=== PATIENT | male | born 1955 | race Caucasian/White ===

== ENCOUNTER 2017-09-19 12:38 | Emergency (ER) | payer BC, OTHER ==
[2017-09-19 12:47] VITALS: RESP 18
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
[2017-09-19] MEDS ORDERED: MORPHINE SULFATE 4 MG/ML SYRINGE IVP STA (13:30)
[2017-09-19 13:49] LABS: Basophils % (A) 0 %; Eosinophils # (A) 0.1 k/uL (0-0.7); Eosinophils % (A) 1 %; HCT 41.8 % (39.0-53.0); HGB 13.5 gm/dL (13.0-17.5); Lymphocytes # (A) 1.1 k/uL (1.0-4.8); Lymphocytes % (A) 13 %; MCHC 32.4 g/dL (31.0-37.0); MCV 86.5 fL (80.0-100.0); Monocytes # (A) 0.4 k/uL (0-1.0); Monocytes % (A) 5 %; Neutrophils # (A) 6.4 k/uL (1.3-7.7); Neutrophils % (A) 80 %; Platelet Count 148 k/uL (150-450); RBC 4.83 m/uL (4.30-5.90); RDW 14.3 % (11.5-15.5)
[2017-09-19 13:57] LABS: Chloride 104 mmol/L (98-107)
[2017-09-19 14:02] LABS: Partial Thromboplastin Time 25.5 sec (22.0-30.0); Prothrombin Time 10.2 sec (9.0-12.0)
[2017-09-19 14:03] LABS: Creatine Kinase 121 U/L (55-170)
[2017-09-19 14:16] LABS: Creatine Kinase MB 1.4 ng/mL (0.0-2.4); Troponin I <0.012 ng/mL (0.000-0.034)
[2017-09-19 14:42] LABS: ALT 36 U/L (21-72); AST 32 U/L (17-59); Albumin 4.2 g/dL (3.5-5.0); Alcohol <10 mg/dL; Alkaline Phosphatase 68 U/L (38-126); Anion Gap 10 mmol/L; Blood Urea Nitrogen 17 mg/dL (9-20); Calcium 8.9 mg/dL (8.4-10.2); Carbon Dioxide 26 mmol/L (22-30); Glucose 109 mg/dL (74-99); Potassium 3.8 mmol/L (3.5-5.1); Sodium 140 mmol/L (137-145); Total Bilirubin 0.4 mg/dL (0.2-1.3); Total Protein 7.2 g/dL (6.3-8.2)
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
[2017-09-19 16:01] VITALS: BP 145/98; PULSE 87; TEMP 97.4
== END 2017-09-19 16:13 | disposition home or self-care (01) ==
LOC: EC 12:38
DX: M54.9 Dorsalgia, unspecified (principal); R07.9 Chest pain, unspecified; G47.419 Narcolepsy without cataplexy; I10 Essential (primary) hypertension; Z98.890 Other specified postprocedural states; Z96.642 Presence of left artificial hip joint; Z79.899 Other long term (current) drug therapy; V89.2XXA Person injured in unspecified motor-vehicle accident, traffic, initial encounter; Y92.89 Other specified places as the place of occurrence of the external cause
CPT/HCPCS: 36415; 80053; 82550; 82553; 84484; 85025; 85610; 85730; 80320; 71260; 74177; 99285; 96374; J2270; Q9967

== ENCOUNTER 2018-12-31 21:11 | Observation (INO) | payer BC, OTHER ==
[2018-12-31] MEDS ORDERED: SODIUM CHLORIDE 0.9% 1,000 ML IV STA (21:42)
--- NOTE | 2018-12-31 21:49 | ED ---
General Adult HPI - General Chief complaint: Syncope Stated complaint: Near syncope Time Seen by Provider: 12/31/18 21:30 Source: patient, family, RN notes reviewed, old records reviewed Mode of arrival: EMS Limitations: no limitations - History of Present Illness Initial comments: 63-year-old male presents with syncopal episode. Patient does have previous history of syncopal episode approximately 2-3 years ago. He has history of hypertension. He had not taken his antihypertensive medications tonight. He was sitting at the table watching television became lightheaded and diaphoretic. His take his blood pressure to 70 systolic. He does state he had 2 glasses of wine which is not abnormal for this patient. He had eaten and believes he had drank adequate amount water. No vomiting or diarrhea. No chest pain. He did have palpitations associated with this episode. No abdominal pain. Patient is feeling better at the time my evaluation. Denies melena or bright red rectal bleeding. - Related Data Home Medications Medication Instructions Recorded Confirmed Losartan/Hydrochlorothiazide 1 each PO DAILY 08/21/14 08/21/14 [Losartan-Hctz 100-25 mg Tab] Methylphenidate HCl [Ritalin] 20 mg PO 08/21/14 08/21/14 Previous Rx's Medication Instructions Recorded Hydrocodone/Acetaminophen [[place] 1 each PO Q6HR PRN #20 tab 08/21/14 5-325] Orphenadrine [Norflex] 100 mg PO Q12H #10 tablet.er 08/21/14 Allergies Allergy/AdvReac Type Severity Reaction Status Date / Time No Known Allergies Allergy Verified 09/19/17 12:47 Review of Systems ROS Statement: Those systems with pertinent positive or pertinent negative responses have been documented in the HPI. ROS Other: All systems not noted in ROS Statement are negative. Past Medical History Past Medical History: Hypertension Additional Past Medical History / Comment(s): narcolepsy History of Any Multi-Drug Resistant Organisms: None Reported Past Surgical History: Joint Replacement, Orthopedic Surgery Additional Past Surgical History / Comment(s): back sx, left hip replacement Past Psychological History: No Psychological Hx Reported Smoking Status: Never smoker Past Alcohol Use History: Rare Past Drug Use History: None Reported General Exam Limitations: no limitations General appearance: alert, in no apparent distress Head exam: Present: atraumatic, normocephalic Eye exam: Present: normal appearance, PERRL ENT exam: Present: normal exam Neck exam: Present: normal inspection. Absent: tenderness, meningismus Respiratory exam: Present: normal lung sounds bilaterally. Absent: respiratory distress, wheezes Cardiovascular Exam: Present: regular rate, normal rhythm. Absent: irregular rhythm, JVD GI/Abdominal exam: Present: soft, distended. Absent: tenderness, guarding, rebound Extremities exam: Present: normal inspection, normal capillary refill. Absent: pedal edema, calf tenderness Neurological exam: Present: alert, oriented X3, CN II-XII intact. Absent: motor sensory deficit Psychiatric exam: Present: normal affect, normal mood Skin exam: Present: warm, dry, intact. Absent: cyanosis, diaphoretic Course Vital Signs 12/31/18 12/31/18 21:37 22:38 Temperature 98.0 F Pulse Rate 82 Pulse Rate [ 62 Diagnostic Assistant ] Respiratory 20 Rate Blood Pressure 135/76 O2 Sat by Pulse 99 Oximetry EKG Findings - EKG Comments: EKG Findings:: EKG: Normal sinus rhythm, rate of 67, IL interval 180, QRS duration 114, QTC 429, no ST segment elevation or depression. Medical Decision Making - Medical Decision Making 63-year-old male presenting with an episode of hypotension and syncope. Workup in the emergency department reveals EKG was normal sinus rhythm, no ischemic changes. Chest x-ray negative for acute cardiopulmonary disease. Patient has normal CBC, normal CMP, negative troponin. Urinalysis is pending. Patient will be kept in observation given his episode of very low blood pressure. He will be kept on telemetry, echo will be obtained. - Lab Data Result diagrams: 12/31/18 21:24 12/31/18 21:24 Lab Results 12/31/18 12/31/18 12/31/18 Range/Units 21:24 21:24 21:24 WBC 8.2 (3.8-10.6) k/uL RBC 4.71 (4.30-5.90) m/uL Hgb 13.8 (13.0-17.5) gm/dL Hct 41.9 (39.0-53.0) % MCV 89.0 (80.0-100.0) fL MCH 29.3 (25.0-35.0) pg MCHC 33.0 (31.0-37.0) g/dL RDW 13.8 (11.5-15.5) % Plt Count 161 (150-450) k/uL Neutrophils % 73 % Lymphocytes % 19 % Monocytes % 5 % Eosinophils % 1 % Basophils % 0 % Neutrophils # 6.0 (1.3-7.7) k/uL Lymphocytes # 1.6 (1.0-4.8) k/uL Monocytes # 0.4 (0-1.0) k/uL Eosinophils # 0.1 (0-0.7) k/uL Basophils # 0.0 (0-0.2) k/uL PT 9.8 (9.0-12.0) sec INR 0.9 (<1.2) APTT 23.7 (22.0-30.0) sec Sodium 140 (137-145) mmol/L Potassium 3.7 (3.5-5.1) mmol/L Chloride 105 (98-107) mmol/L Carbon Dioxide 27 (22-30) mmol/L Anion Gap 8 mmol/L BUN 21 H (9-20) mg/dL Creatinine 0.93 (0.66-1.25) mg/dL Est GFR (CKD-EPI)AfAm >90 (>60 ml/min/1.73 sqM) Est GFR (CKD-EPI)NonAf 87 (>60 ml/min/1.73 sqM) Glucose 120 H (74-99) mg/dL Calcium 9.2 (8.4-10.2) mg/dL Magnesium 2.2 (1.6-2.3) mg/dL Total Bilirubin 0.2 (0.2-1.3) mg/dL AST 27 (17-59) U/L ALT 35 (21-72) U/L Alkaline Phosphatase 62 (38-126) U/L Troponin I (0.000-0.034) ng/mL Total Protein 7.5 (6.3-8.2) g/dL Albumin 4.2 (3.5-5.0) g/dL Serum Alcohol mg/dL 12/31/18 12/31/18 Range/Units 21:24 22:32 WBC (3.8-10.6) k/uL RBC (4.30-5.90) m/uL Hgb (13.0-17.5) gm/dL Hct (39.0-53.0) % MCV (80.0-100.0) fL MCH (25.0-35.0) pg MCHC (31.0-37.0) g/dL RDW (11.5-15.5) % Plt Count (150-450) k/uL Neutrophils % % Lymphocytes % % Monocytes % % Eosinophils % % Basophils % % Neutrophils # (1.3-7.7) k/uL Lymphocytes # (1.0-4.8) k/uL Monocytes # (0-1.0) k/uL Eosinophils # (0-0.7) k/uL Basophils # (0-0.2) k/uL PT (9.0-12.0) sec INR (<1.2) APTT (22.0-30.0) sec Sodium (137-145) mmol/L Potassium (3.5-5.1) mmol/L Chloride (98-107) mmol/L Carbon Dioxide (22-30) mmol/L Anion Gap mmol/L BUN (9-20) mg/dL Creatinine (0.66-1.25) mg/dL Est GFR (CKD-EPI)AfAm (>60 ml/min/1.73 sqM) Est GFR (CKD-EPI)NonAf (>60 ml/min/1.73 sqM) Glucose (74-99) mg/dL Calcium (8.4-10.2) mg/dL Magnesium (1.6-2.3) mg/dL Total Bilirubin (0.2-1.3) mg/dL AST (17-59) U/L ALT (21-72) U/L Alkaline Phosphatase (38-126) U/L Troponin I <0.012 (0.000-0.034) ng/mL Total Protein (6.3-8.2) g/dL Albumin (3.5-5.0) g/dL Serum Alcohol <10 mg/dL Disposition Clinical Impression: Syncope Disposition: ADMITTED IP TO THIS HOSP Condition: Stable Is patient prescribed a controlled substance at d/c from ED?: No Referrals: Rodrigo Singer DO [Primary Care Provider] - 1-2 days Decision to Admit Reason: Admit from EC Decision Date: 12/31/18 Decision Time: 23:51
[2018-12-31 21:51] LABS: Eosinophils % (A) 1 %; HCT 41.9 % (39.0-53.0); HGB 13.8 gm/dL (13.0-17.5); Lymphocytes % (A) 19 %; MCH 29.3 pg (25.0-35.0); Mean Platelet Volume 6.7; Monocytes % (A) 5 %; Neutrophils % (A) 73 %; Platelet Count 161 k/uL (150-450); RBC 4.71 m/uL (4.30-5.90); RDW 13.8 % (11.5-15.5); WBC 8.2 k/uL (3.8-10.6)
[2018-12-31 21:52] LABS: Basophils % (A) 0 %; Eosinophils # (A) 0.1 k/uL (0-0.7); Lymphocytes # (A) 1.6 k/uL (1.0-4.8); Monocytes # (A) 0.4 k/uL (0-1.0)
[2018-12-31 21:59] LABS: INR 0.9 (<1.2); Partial Thromboplastin Time 23.7 sec (22.0-30.0); Prothrombin Time 9.8 sec (9.0-12.0)
[2018-12-31 22:02] LABS: ALT 35 U/L (21-72); AST 27 U/L (17-59); African American GFR (CKD) >90 (>60 ml/min/1.73 sqM); Albumin 4.2 g/dL (3.5-5.0); Alkaline Phosphatase 62 U/L (38-126); Anion Gap 8 mmol/L; Blood Urea Nitrogen 21 mg/dL (9-20); Calcium 9.2 mg/dL (8.4-10.2); Carbon Dioxide 27 mmol/L (22-30); Chloride 105 mmol/L (98-107); Glucose 120 mg/dL (74-99); Magnesium 2.2 mg/dL (1.6-2.3); Non-African American GFR(CKD) 87 (>60 ml/min/1.73 sqM); Potassium 3.7 mmol/L (3.5-5.1); Sodium 140 mmol/L (137-145); Total Bilirubin 0.2 mg/dL (0.2-1.3); Total Protein 7.5 g/dL (6.3-8.2)
--- NOTE | 2018-12-31 22:28 | XR ---
EXAMINATION TYPE: XR chest 2V DATE OF EXAM: 12/31/2018 COMPARISON: 02/26/2013 HISTORY: Syncope. Hypotension TECHNIQUE: Frontal and lateral views of the chest are obtained. FINDINGS: Heart and mediastinum are normal. Lungs are clear. Diaphragm is normal. Bony thorax is nor mal. There are chest leads. IMPRESSION: Normal chest. No change.
[2018-12-31] MEDS ORDERED: ACETAMINOPHEN TAB 325 MG TAB PO PRN (23:47)
[2018-12-31] MEDS ORDERED: ONDANSETRON 4 MG/2 ML VIAL IVP PRN (23:47)
[2018-12-31] MEDS ORDERED: NALOXONE 0.4 MG/ML 1 ML VIAL IV PRN (23:47)
[2019-01-01] MEDS: CYCLOBENZAPRINE 10 MG TAB PO SCH ×2 (01:23→16:04)
[2019-01-01] MEDS: SODIUM CHLORIDE 0.9% 1,000 ML IV SCH ×2 (01:23→19:09)
[2019-01-01 01:50] LABS: Appearance,Urine Clear (Clear); Bilirubin,Urine Negative (Negative); Blood,Urine Negative (Negative); Color,Urine Yellow; Glucose,Urine (UA) Negative (Negative); Ketones,Urine Negative (Negative); Leukocyte Esterase,Urine Large (Negative); Mucus,Urine Few /hpf; Nitrite,Urine Negative (Negative); Protein,Urine Trace (Negative); RBC,Urine 3 /hpf (0-5); Specific Gravity,Urine 1.032 (1.001-1.035); Squamous Epithelial Cell,Urine 2 /hpf (0-4); WBC,Urine 8 /hpf (0-5)
[2019-01-01] MEDS: METHYLPHENIDATE HCL 10 MG TAB PO SCH (08:27)
--- NOTE | 2019-01-01 11:37 | CT ---
EXAMINATION TYPE: CT brain wo con DATE OF EXAM: 01/01/2019 COMPARISON: NONE HISTORY: Syncope CT DLP: 1074.4 mGycm Automated exposure control for dose reduction was used. FINDINGS: Central structures are midline. There is no evidence of hydrocephalus. No acute focal lesion, mass ef fect or midline shift is seen. I do not see evidence of intracranial blood. Visualized portions of the paranasal sinuses and mastoids are clear. The bony calvarium is intact. IMPRESSION: NO ACUTE INTRACRANIAL ABNORMALITY
--- NOTE | 2019-01-01 12:37 | US ---
EXAMINATION TYPE: US carotid duplex BILAT DATE OF EXAM: 01/01/2019 COMPARISON: CT brain CLINICAL HISTORY: syncope; non smoker EXAM MEASUREMENTS: RIGHT: Peak Systolic Velocity (PSV) cm/sec ----- Right CCA: 66.4 ----- Right ICA: 63.6 ----- Right ECA: 93.8 ICA/CCA ratio: 1.0 RIGHT: End Diastole cm/sec ----- Right CCA: 12.9 ----- Right ICA: 0.0 ----- Right ECA: 10.4 LEFT: Peak Systolic Velocity (PSV) cm/sec ----- Left CCA: 75.8 ----- Left ICA: 95.3 ----- Left ECA: 91.4 ICA/CCA ratio: 1.3 LEFT: End Diastole cm/sec ----- Left CCA: 18.9 ----- Left ICA: 35.7 ----- Left ECA: 9.8 VERTEBRALS (direction of flow): Right Vertebral: Antegrade Left Vertebral: Antegrade Rhythm: Normal Mild intimal wall changes are noted in bilateral carotid systems, but PSV is wnl bilaterally. IMPRESSION: I DO NOT SEE EVIDENCE OF A HEMODYNAMICALLY SIGNIFICANT STENOSIS IN EITHER CAROTID SYSTEM. Criteria for Assigning % of Stenosis / Diameter reduction (Estimation based on the indirect measurements of the internal carotid artery velocities (ICA PSV). 1. Normal (no stenosis)=ICA PSV < 125 cm/s: ratio < 2.0: ICA EDV<40 cm/s. 2. Less than 50% stenosis=ICA PSV < 125 cm/s: ratio < 2.0: ICA EDV<40 cm/s. 3. 50 to 69% stenosis=ICA PSV of 125 to 230 cm/s: ration 2.0 ? 4.0: ICA EDV 40-100 cm/s. 4. Greater than 70% stenosis to near occlusion= ICA PSV > 230 cm/s: ratio > 4.0: ICA EDV > 100 cm/s. 5. Near occlusion= ICA PSV velocities may be low or undetectable: variable ratio and ICA EDV. 6. Total occlusion=unable to detect flow.
--- NOTE | 2019-01-01 15:48 | ECHOF ---
Referral Reason:Syncope MEASUREMENTS -------- HEIGHT: 172.7 cm WEIGHT: 136.1 kg BP: 144/81 RVIDd: 2.8 cm (< 3.3) IVSd: 1.5 cm (0.6 - 1.1) LVIDd: 4.8 cm (3.9 - 5.3) LVPWd: 1.5 cm (0.6 - 1.1) IVSs: 2.0 cm LVIDs: 3.4 cm LVPWs: 2.1 cm LA Diam: 3.6 cm (2.7 - 3.8) LAESV Index (A-L): 16.57 ml/m Ao Diam: 3.6 cm (2.0 - 3.7) AV Cusp: 2.7 cm (1.5 - 2.6) MV EXCURSION: 19.089 mm (> 18.000) MV EF SLOPE: 107 mm/s (70 - 150) EPSS: 0.4 cm MV E Johan: 0.80 m/s MV DecT: 177 ms MV A Johan: 0.76 m/s MV E/A Ratio: 1.05 RAP: 5.00 mmHg RVSP: 31.41 mmHg TAPSE: 18.66 mm FINDINGS -------- Sinus rhythm. This was a technically difficult study with suboptimal views. The left ventricular size is normal. There is moderate concentric left ventricular hypertrophy. O verall left ventricular systolic function is normal with, an EF between 60 - 65 %. The right ventricle is normal in size. Normal LA size by volume 22+/-6 ml/m2. The right atrium is normal in size. Lumason used Interatrial and interventricular septum intact. The aortic valve is trileaflet and appears structurally normal. The mitral valve is normal. Mild tricuspid regurgitation present. There is no evidence of pulmonary hypertension. There is no pulmonic regurgitation present. The aortic root size is normal. IVC Not well visulized. There is no pericardial effusion. CONCLUSIONS -------- 1. Sinus rhythm. 2. This was a technically difficult study with suboptimal views. 3. The left ventricular size is normal. 4. There is moderate concentric left ventricular hypertrophy. 5. Overall left ventricular systolic function is normal with, an EF between 60 - 65 %. 6. The right ventricle is normal in size. 7. Normal LA size by volume 22+/-6 ml/m2. 8. The right atrium is normal in size. 9. Lumason used 10. Interatrial and interventricular septum intact. 11. The aortic valve is trileaflet and appears structurally normal. 12. The mitral valve is normal. 13. Mild tricuspid regurgitation present. 14. There is no evidence of pulmonary hypertension. 15. There is no pulmonic regurgitation present. 16. The aortic root size is normal. 17. IVC Not well visulized. 18. There is no pericardial effusion. BRAKE DRUM LATHE OPERATOR: Brook Clements RDCS
--- NOTE | 2019-01-01 16:33 | P.CRDCN ---
History of Present Illness Consult date: 01/01/19 Consult reason: sycope History of present illness: This is a 63-year-old male patient with past medical history of hypertension, obstructive sleep apnea on CPAP and narcolepsy, morbid obesity status post gastric bypass done at [facility]. 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 The patient states that he had worked the midnight shift and was getting home around 10 in the morning and he tried to sleep he woke up around 3 or 4 in the afternoon and was sitting watching TV and had a glass of wine and all of a sudden he could feel himself dropping. He called for his and his checked his blood pressure and it was 71/55. She states that he looked flushed and sweaty and was unconscious. She denies any jerking or seizure-like activity. She called 911 and the patient was brought into [facility] emergency center for evaluation. His heart rate was 82, blood pressure 135/76, afebrile, pulse ox 99% on room air. EKG was a normal sinus rhythm with no acute ST-T wave changes. Chest x-ray was negative for acute cardiac pulmonary disease. CBC was normal, electrolytes within normal limits, creat inine 0.93 and BUN 21, blood sugar 120, liver function tests within normal limits. Troponin was negative and serum alcohol less than 10. Patient was admitted to the Med[facility] floor and cardiology consult was subsequently requested. Patient is relates that there has been more stress at home with the patient's job and also the son has lost his job recently. Patient denies having any dysuria but he states his urine has looked darker this morning. The patient has also had a similar episode where he passed out at a gas station and sustained a right ankle fracture requiring ORIF. Patient was seen at [facility] at that time. Review of Systems Constitutional: Denies chills, Denies fatigue, Denies fever, Denies lethargy, Denies malaise, Denies poor appetite Eyes: denies blurred vision, denies pain Ears, nose, mouth and throat: Denies headache, Denies nasal congestion, Denies sore throat Cardiovascular: Reports lightheadedness, Reports syncope, Denies chest pain, Denies decreased exercise tolerance, Denies dyspnea on exertion, Denies shortness of breath Respiratory: Denies cough, Denies cough with sputum, Denies dyspnea, Denies hemoptysis Gastrointestinal: Denies abdominal pain, Denies diarrhea, Denies loss of appetite, Denies nausea, Denies vomiting Genitourinary: Denies dysuria, Denies urinary retention Musculoskeletal: Denies frequent falls, Denies gait dysfunction, Denies muscle weakness, Denies myalgias Integumentary: Denies pruritus, Denies rash, Denies wounds Neurological: Reports change in mentation, Denies gait dysfunction, Denies numbness, Denies seizures, Denies weakness Psychiatric: Denies anxiety, Denies depression Gen: This is a 63-year-old male. He is resting in bed and appears to be comfortable in no acute distress.] HEENT: Head is atraumatic, normocephalic. Pupils equal, round. Sclerae is anicteric. NECK: Supple. No JVD. No lymphadenopathy. No thyromegaly. LUNGS: Clear to auscultation. No wheezes or rhonchi. No intercostal retractions. HEART: Regular rate and rhythm. No murmur. ABDOMEN: Soft. Bowel sounds are present. No masses. No tenderness. EXTREMITIES: No pedal edema. No calf tenderness. NEUROLOGICAL: Patient is awake, alert and oriented x3. Cranial nerves 2 through 12 are grossly intact. Assessment: Syncopal episode Hypotension History of hypertension Obstructive sleep apnea on CPAP Narcolepsy Morbid obesity status post gastric bypass Plan: Continue cardiac rn for arrhythmias Orthostatic vital signs Hold losartan/hydrochlorothiazide Echocardiogram Carotid Doppler Further recommendations based upon clinical course Thank you kindly for this consultation Nurse practitioner note has been reviewed, I agree with documented findings and plan of care. Patient was seen and examined. Past Medical History Past Medical History: Hypertension Additional Past Medical History / Comment(s): narcolepsy History of Any Multi-Drug Resistant Organisms: None Reported Past Surgical History: Joint Replacement, Orthopedic Surgery Additional Past Surgical History / Comment(s): back sx, left hip replacement, plate in right ankle Past Psychological History: No Psychological Hx Reported Smoking Status: Never smoker Past Alcohol Use History: Rare Past Drug Use History: None Reported - Past Family History Father Additional Family Medical History / Comment(s): Father at age 88 from consultations of coronary artery disease. He had a CABG done at age 59. Mother Additional Family Medical History / Comment(s): Mother at age 77 from liver cancer with history of smoking. Brother(s) Additional Family Medical History / Comment(s): Patient has 1 brother with no murmur no other medical problems. Patient's 1 sister age 73 with history of breast cancer. Patient has 5 children and 3 have a hereditary blood disorder that causes jaundice. Medications and Allergies Home Medications Medication Instructions Recorded Confirmed Type Losartan/Hydrochlorothiazide 1 tab PO HS 08/21/14 01/01/19 History [Losartan-Hctz 100-25 mg Tab] Methylphenidate HCl 20 mg PO HS 01/01/19 01/01/19 History [Methylphenidate HCl ER] Allergies Allergy/AdvReac Type Severity Reaction Status Date / Time No Known Allergies Allergy Verified 01/01/19 08:12 Physical Exam Vitals: Vital Signs Temp Pulse Pulse Pulse Resp BP BP 01/01/19 08:00 62 18 01/01/19 07:00 98.1 F 62 18 111/71 01/01/19 01:00 97.8 F 64 14 144/81 01/01/19 00:00 69 18 113/60 12/31/18 22:38 62 12/31/18 21:37 98.0 F 82 20 135/76 Pulse Ox 01/01/19 08:00 01/01/19 07:00 97 01/01/19 01:00 98 01/01/19 00:00 98 12/31/18 22:38 12/31/18 21:37 99 Intake and Output 12/31/18 01/01/19 01/01/19 22:59 06:59 14:59 Intake Total 1480 Output Total 40 Balance 1440 Intake: Amount of Fluid Infused ( 1000 ml) Oral 480 Output: Urine 40 Other: Voiding Method Toilet Toilet Urinal # Voids 1 Weight 136.078 kg Results 12/31/18 21:24 12/31/18 21:24 Cardiac Enzymes 12/31/18 12/31/18 Range/Units 21:24 21:24 AST 27 (17-59) U/L Troponin I <0.012 (0.000-0.034) ng/mL Coagulation 12/31/18 Range/Units 21:24 PT 9.8 (9.0-12.0) sec APTT 23.7 (22.0-30.0) sec CBC 12/31/18 Range/Units 21:24 WBC 8.2 (3.8-10.6) k/uL RBC 4.71 (4.30-5.90) m/uL Hgb 13.8 (13.0-17.5) gm/dL Hct 41.9 (39.0-53.0) % Plt Count 161 (150-450) k/uL Comprehensive Metabolic Panel 12/31/18 Range/Units 21:24 Sodium 140 (137-145) mmol/L Potassium 3.7 (3.5-5.1) mmol/L Chloride 105 (98-107) mmol/L Carbon Dioxide 27 (22-30) mmol/L BUN 21 H (9-20) mg/dL Creatinine 0.93 (0.66-1.25) mg/dL Glucose 120 H (74-99) mg/dL Calcium 9.2 (8.4-10.2) mg/dL AST 27 (17-59) U/L ALT 35 (21-72) U/L Alkaline Phosphatase 62 (38-126) U/L Total Protein 7.5 (6.3-8.2) g/dL Albumin 4.2 (3.5-5.0) g/dL Current Medications Generic Name Dose Route Start Last Admin Trade Name Freq PRN Reason Stop Dose Admin Acetaminophen 650 mg 12/31/18 23:47 Tylenol Tab PO Q6HR PRN Mild Pain or Fever > 100.5 Cyclobenzaprine HCl 10 mg 12/31/18 23:45 01/01/19 01:23 Flexeril PO 10 mg Q12H WILMA Administration Sodium Chloride 1,000 mls @ 75 mls/hr 12/31/18 23:45 01/01/19 01:23 Saline 0.9% IV 75 mls/hr .[id number] WILMA Administration Methylphenidate HCl 20 mg 01/01/19 09:00 01/01/19 08:27 Ritalin PO 20 mg DAILY WILMA Administration Naloxone HCl 0.2 mg 12/31/18 23:47 Narcan IV Q2M PRN Opioid Reversal Ondansetron HCl 4 mg 12/31/18 23:47 Zofran IVP Q8HR PRN Nausea And Vomiting Intake and Output 11/15/19 11/16/19 11/16/19 22:59 06:59 14:59 Intake Total 1480 Output Total 40 Balance 1440 Intake: Amount of Fluid Infused ( 1000 ml) Oral 480 Output: Urine 40 Other: Voiding Method Toilet Toilet Urinal # Voids 1 Weight 136.078 kg 12/31/18 21:24 12/31/18 21:24
[2019-01-02] MEDS: CYCLOBENZAPRINE 10 MG TAB PO SCH (00:22)
[2019-01-02 01:16] VITALS: TEMP 98
[2019-01-02] MEDS: SODIUM CHLORIDE 0.9% 1,000 ML IV SCH (01:18)
[2019-01-02 07:38] VITALS: BP 136/83; PULSE 67; RESP 18
[2019-01-02] MEDS: METHYLPHENIDATE HCL 10 MG TAB PO SCH (07:48)
[2019-01-02] MEDS ORDERED: MIDODRINE 5 MG TAB PO SCH (08:30)
[2019-01-02] MEDS ORDERED: FAMOTIDINE 20 MG TAB PO SCH (09:00)
[2019-01-02] MEDS ORDERED: ENOXAPARIN 40 MG/0.4 ML SYRINGE SQ SCH (09:00)
--- NOTE | 2019-01-02 09:38 | P.PN ---
Subjective Progress Note Date: 01/02/19 This is a 63-year-old gentleman with history of previous gastric bypass surgery and obesity and also hypertensive cardiac vascular disease who was admitted to the hospital with episode of hypotension and syncope. Since admission. No arrhythmias are documented blood pressure has been stable. He was taken off the losartan and hydrochlorothiazide. No arrhythmias are detected. Lungs are clear. Heart is regular. Patient is doing well. He is being discharged home. He'll be seen in the office in one week. He is also initiated on amiodarone in by primary care physician. We will evaluate him by event monitor as an outpatient and further cardiac workup. Echocardiogram showed normal LV function Objective - Vital Signs Vital signs: Vital Signs Temp 98.0 F 01/02/19 07:00 Pulse 67 01/02/19 07:00 Resp 18 01/02/19 07:00 BP 136/83 01/02/19 07:00 Pulse Ox 92 L 01/02/19 07:00 Intake & Output 01/01/19 01/02/19 01/02/19 18:59 06:59 18:59 Intake Total 761 Balance 761 Intake: Intake, IV Titration 525 Amount Sodium Chloride 0.9% 1, 525 000 ml @ 75 mls/hr IV . [id number] [facility] Rx#:[id number] Oral 236 Other: Voiding Method Toilet # Voids 1 - Exam GENERAL EXAM: Patient is alert and oriented and doesn't appear to be in any acute distress HEENT: Normocephalic. Normal reaction of pupils, equal size, normal range of extraocular motion. No erythema or exudates in the throat. NECK: No masses, no nuchal rigidity. CHEST: No chest wall deformity. LUNGS: Equal air entry with no crackles or wheeze. HEART: S1 and S2 normal with no audible mumurs or gallops. Regular rhythm, femorals equal on both sides.. ABDOMEN: No hepatosplenomegaly, normal bowel sounds, no guarding or rigidity. SKIN: No rashes CENTRAL NERVOUS SYSTEM: No focal deficits. EXTREMITIES: No cyanosis, clubbing or edema. - Labs CBC & Chem 7: 12/31/18 21:24 12/31/18 21:24 Labs: Microbiology - Last 24 Hours (Table) 01/01/19 18:00 Urine Culture - Preliminary Urine,Voided Assessment and Plan (1) Essential hypertension Current Visit: Yes Status: Acute Code(s): I10 - ESSENTIAL (PRIMARY) HYPERTENSION SNOMED Code(s): 44356100 (2) Syncope Current Visit: Yes Status: Acute Code(s): R55 - SYNCOPE AND COLLAPSE SNOMED Code(s): 941472971 Plan: Patient is being discharged on Macrodantin. Losartan hydrochlorothiazide dose is cut back. Follow-up in the office in one week
--- NOTE | 2019-01-03 13:45 | P.DS ---
Providers Date of admission: 12/31/18 23:47 Expected date of discharge: 01/02/19 Attending physician: Kurtis Stoner Consults: 01/01/19 10:50 Consult Physician Routine Consulting Provider: Ritesh Doran Consult Reason/Comments: syncope Do you want consulting provider notified?: Yes Primary care physician: Rodrigo [facility] Course: This is a 63-year-old male patient of Dr. Singer with past medical history of hypertension, obstructive sleep apnea on CPAP and narcolepsy, morbid obesity status post gastric bypass done at [facility]. The patient states that he had worked the midnight shift and was getting home around 10 in the morning and he tried to sleep he woke up around 3 or 4 in the afternoon and was sitting watching TV and had a glass of wine and all of a sudden he could feel himself dropping. He called for his and his checked his blood pressure and it was 71/55. She states that he looked flushed and sweaty and was unconscious. She denies any jerking or seizure-like activity. She called 911 and the patient was brought into [facility] emergency center for evaluation. His heart rate was 82, blood pressure 135/76, afebrile, pulse ox 99% on room air. EKG was a normal sinus rhythm with no acute ST-T wave changes. Chest x-ray was negative for acute cardiac pulmonary disease. CBC was normal, electrolytes within normal limits, creatinine 0.93 and BUN 21, blood sugar 120, liver function tests within normal limits. Troponin was negative and serum alcohol less than 10. [facility] floor and cardiology consult was subsequently requested. Patient is relates that there has been more stress at home with the patient's job and also the son has lost his job recently. Patient denies having any dysuria but he states his urine has looked darker this morning. The patient has also had a similar episode where he passed out at a gas station and sustained a right ankle fracture requiring ORIF. Patient was seen at [facility] at that time. He follows with Dr. Farr for his sleep disorder. 01/02: CAT scan of the brain was negative for any acute findings. Carotid Doppler negative for hemodynamically significant stenosis. Echocardiogram reveals EF of 60-65% with moderate concentric left ventricular hypertrophy, mild tricuspid regurgitation, no pulmonary hypertension. Patient has been seen and followed by cardiology. He has had no documented arrhythmias and no orthostatic changes. Plan is for event monitor as an outpatient from cardiology. We are planning to start the patient on midodrine. Losartan hydrochlorothiazide will be decreased in half at home. Patient will be discharged home today in stable condition Discharge diagnoses: 1. Syncopal episode, possible orthostatic changes, rule out arrhythmia, rule out TIA. 2. Hypotension. 3. History of hypertension. 4. Obstructive sleep apnea on CPAP. 5. Narcolepsy 6. Morbid obesity status post gastric bypass Discharge plan: home Impression and plan of care have been directed as dictated by the signing physician. Janee Mann nurse practitioner acting as scribe for signing physician. Patient Condition at Discharge: Good Plan - Discharge Summary Discharge Rx Participant: Yes New Discharge Prescriptions: New Midodrine [ProAmatine] 2.5 mg PO AC-BID #30 tab Continue Losartan/Hydrochlorothiazide [Losartan-Hctz 100-25 mg Tab] 1 tab PO HS Methylphenidate HCl [Methylphenidate HCl ER] 20 mg PO HS Discharge Medication List Losartan/Hydrochlorothiazide [Losartan-Hctz 100-25 mg Tab] 1 tab PO HS 08/21/14 [History] Methylphenidate HCl [Methylphenidate HCl ER] 20 mg PO HS 01/01/19 [History] Midodrine [ProAmatine] 2.5 mg PO AC-BID #30 tab 01/02/19 [Rx] Follow up Appointment(s)/Referral(s): Luis Farr MD [REFERRING] - 1 Week (has appointment 01/06) Rodrigo Singer DO [Primary Care Provider] - 1 Week Ritesh Doran MD [STAFF PHYSICIAN] - 1 Week Patient Instructions/Handouts: Syncope (DC) Activity/Diet/Wound Care/Special Instructions: Losartan/HCTZ take half tablet at bedtime. Discharge Disposition: HOME SELF-CARE
== END 2019-01-02 12:50 | disposition home or self-care (01) ==
LOC: EC 21:11 → 4SSUR 23:47
PROVIDERS: ADMIT Internal Medicine; ATTEND Internal Medicine
DX: R55 Syncope and collapse (principal); R61 Generalized hyperhidrosis; I95.9 Hypotension, unspecified; T46.5X6A Underdosing of other antihypertensive drugs, initial encounter; G47.33 Obstructive sleep apnea (adult) (pediatric); Z99.89 Dependence on other enabling machines and devices; G47.419 Narcolepsy without cataplexy; E66.01 Morbid (severe) obesity due to excess calories; Z68.42 Body mass index [BMI] 45.0-49.9, adult; Z98.84 Bariatric surgery status; Z63.79 Other stressful life events affecting family and household; I11.9 Hypertensive heart disease without heart failure; Z79.899 Other long term (current) drug therapy; Z82.49 Family history of ischemic heart disease and other diseases of the circulatory system; Z80.0 Family history of malignant neoplasm of digestive organs; Z80.3 Family history of malignant neoplasm of breast; Z83.2 Family history of diseases of the blood and blood-forming organs and certain disorders involving the immune mechanism
CPT/HCPCS: 96372; 96360; 96361; 99285; 36415; 93005; 93306; 80053; 83735; 84484; 85025; 85610; 85730; 81001; 80320; 87086; 71046; 93880; 70450; G0378 ×2; J1650; Q9950

== ENCOUNTER 2019-02-12 12:22 | Emergency (ER) | payer BC ==
--- NOTE | 2019-02-12 13:58 | XR ---
EXAMINATION TYPE: XR chest 2V DATE OF EXAM: 02/12/2019 COMPARISON: Chest x-ray December 31, 2018 HISTORY: Contrast injection for 10 days. TECHNIQUE: Frontal and lateral views of the chest are obtained. FINDINGS: There is no focal air space opacity, pleural effusion, or pneumothorax seen. The cardiac silhouette size is stable and enlarged. The osseous structures are intact. IMPRESSION: Cardiomegaly without acute pulmonary process.
--- NOTE | 2019-02-12 14:30 | ED ---
URI HPI - General Chief Complaint: Upper Respiratory Infection Stated Complaint: cough Time Seen by Provider: 02/12/19 12:58 Source: patient Mode of arrival: ambulatory Limitations: no limitations - History of Present Illness Initial Comments: 63-year-old male history of hypertension presents emergency department today for chief complaint of cough congestion sore throat. Patient states for the past 10 days he has had cough congestion throat denies recording fever denies any chest pain or difficulty breathing. Patient denies any pain with inspiration leg swelling difficulty breathing or swelling. Remaining review of systems negative upon arrival patient appears well no signs of acute distress. Patient also admits to pressure of the face and ears. Patient has positive sick contacts as in the household has the same symptoms. Patient appears well nontoxic upon arrival afebrile - Related Data Home Medications Medication Instructions Recorded Confirmed Losartan/Hydrochlorothiazide 1 tab PO HS 08/21/14 01/01/19 [Losartan-Hctz 100-25 mg Tab] Methylphenidate HCl 20 mg PO HS 01/01/19 01/01/19 [Methylphenidate HCl ER] Previous Rx's Medication Instructions Recorded Midodrine [ProAmatine] 2.5 mg PO AC-BID #30 tab 01/02/19 Azithromycin [Zithromax Z-pack] 0 mg PO DIRECTED #6 tab 02/12/19 predniSONE 20 mg PO DAILY 5 Days #5 tab 02/12/19 Allergies Allergy/AdvReac Type Severity Reaction Status Date / Time No Known Allergies Allergy Verified 02/12/19 12:49 Review of Systems ROS Statement: Those systems with pertinent positive or pertinent negative responses have been documented in the HPI. ROS Other: All systems not noted in ROS Statement are negative. Past Medical History Past Medical History: Hypertension Additional Past Medical History / Comment(s): narcolepsy History of Any Multi-Drug Resistant Organisms: None Reported Past Surgical History: Joint Replacement, Orthopedic Surgery Additional Past Surgical History / Comment(s): back sx, left hip replacement, plate in right ankle Past Psychological History: No Psychological Hx Reported Smoking Status: Never smoker Past Alcohol Use History: Rare Past Drug Use History: None Reported - Past Family History Father Additional Family Medical History / Comment(s): Father at age 88 from consultations of coronary artery disease. He had a CABG done at age 59. Mother Additional Family Medical History / Comment(s): Mother at age 77 from liver cancer with history of smoking. Brother(s) Additional Family Medical History / Comment(s): Patient has 1 brother with no murmur no other medical problems. Patient's 1 sister age 73 with history of breast cancer. Patient has 5 children and 3 have a hereditary blood disorder that causes jaundice. General Exam - General Exam Comments Initial Comments: General: The patient is awake and alert, in no distress, and does not appear acutely ill. Eye: +3 mm pupils are equal, round and reactive to light, extra-ocular movements are intact. No nystagmus. There is normal conjunctiva bilaterally. No signs of icterus. No photophobia Ears, nose, mouth and throat: There are moist mucous membranes and no oral lesions. Oropharynx was not erythematous there is no tonsillar enlargement exudates or lesions. Uvula midline. Tympanic membranes are not erythematous or is no effusions bulging or retraction. No tenderness to palpation of the mastoid. No anterior cervical lymphadenopathy. Rhinorrhea, clear and bilateral nares. No tripoding, no drooling. Neck: The neck is supple, there is no tenderness or JVD. No nuchal rigidity Cardiovascular: There is a regular rate and rhythm. No murmur, rub or gallop is appreciated. Respiratory: Lungs are clear to auscultation, respirations are non-labored, breath sounds are equal. No wheezes, stridor, rales, or rhonchi. No retracti ons or abdominal breathing. Gastrointestinal: Soft, non-distended, non-tender abdomen without masses or organomegaly noted. There is no rebound or guarding present. Bowel sounds are unremarkable. Musculoskeletal: Normal ROM, no tenderness. Strength 5/5. Sensation intact. Radial pulses equal bilaterally 2+. Neurological: A&O x 3. CN II-XII intact grossly, There are no obvious motor or sensory deficits. Coordination appears grossly intact. Speech appears normal, no muffling. Skin: Skin is warm and dry and no rashes or lesions are noted. No extremity edema Psychiatric: Cooperative Limitations: no limitations Course Vital Signs 02/12/19 02/12/19 02/12/19 12:49 14:00 14:55 Temperature 98.1 F 98.0 F Pulse Rate 77 69 70 Respiratory 20 20 18 Rate Blood Pressure 167/78 118/75 129/66 O2 Sat by Pulse 98 98 98 Oximetry Medical Decision Making - Medical Decision Making 63-year-old male presenting for cough congestion sore throat. Obvious upper respiratory symptoms and physical examination. Chest x-ray clear lungs clear to auscultation. Patient afebrile nontoxic in appearance. Uvula midline nose and oropharynx erythema. Patient will be discharged with azithromycin and steroids. Return parameters importance of primary care. Discussed at length the patient verbalized understanding patient was discharged appearing well after discussed the case with attending provider Dr. Gunn - Lab Data Lab Results 02/12/19 Range/Units 13:40 Influenza Type A RNA Not Detected (Not Detectd) Influenza Type B (PCR) Not Detected (Not Detectd) Disposition Clinical Impression: Upper respiratory infection Disposition: HOME SELF-CARE Condition: Good Instructions (If sedation given, give patient instructions): Upper Respiratory Infection (ED) Additional Instructions: Please use medication as discussed. Please follow-up with family doctor in the next 2 days. Please return to emergency room if the symptoms increase or worsen or for any other concerns. Prescriptions: predniSONE 20 mg PO DAILY 5 Days #5 tab Azithromycin [Zithromax Z-pack] 0 mg PO DIRECTED #6 tab Is patient prescribed a controlled substance at d/c from ED?: No Referrals: Rodrigo Singer DO [Primary Care Provider] - 1-2 days Time of Disposition: 14:30
[2019-02-12] MEDS ORDERED: predniSONE 20 MG TAB PO STA (14:39)
[2019-02-12 15:00] VITALS: BP 129/66; PULSE 70; RESP 18; TEMP 98
== END 2019-02-12 15:00 | disposition home or self-care (01) ==
LOC: EC 12:22
DX: J06.9 Acute upper respiratory infection, unspecified (principal); I10 Essential (primary) hypertension; Z96.642 Presence of left artificial hip joint; Z79.899 Other long term (current) drug therapy
CPT/HCPCS: 87502; 71046; 99283; J7512

== ENCOUNTER 2019-12-06 05:23 | Inpatient (IN) | payer BC ==
[2019-12-06] MEDS ORDERED: PANTOPRAZOLE 40 MG/10 ML VIAL IVP STA (05:29)
[2019-12-06] MEDS ORDERED: SODIUM CHLORIDE 0.9% 1,000 ML IV STA (05:29)
--- NOTE | 2019-12-06 05:30 | ED ---
GI Bleed HPI - General Stated complaint: GI bleed Time Seen by Provider: 12/06/19 05:29 - History of Present Illness Initial comments: Jd is a 63-year-old male who presents the ER today for evaluation of a few days of dark tarry stools, lightheadedness and fatigue today. Patient reports that he's noticed some dark stools over the past week, he was constipated yesterday so he ate prunes and then noticed that his stool was black and tarry she is similar to previous GI bleed he had approximately 5 years ago. Patient's noted that he looked pale, patient was feeling lightheaded upon standing and very fatigued. This constellation of symptoms prompted them to come to the ER for further evaluation. Patient reports approximately 5 years ago he had similar symptoms as well as a syncopal episode resulting from anemia due to GI bleeding. Patient was treated at [facility] at that time. He states that they never found any source of bleeding he had endoscopy, colonoscopy and then had pill endoscopy with no significant findings. He has not followed with GI since that time. He is on no antiplatelet or anticoagulant medications. Denies any significant NSAID use. - Related Data Home Medications Medication Instructions Recorded Confirmed Losartan/Hydrochlorothiazide 1 tab PO HS 08/21/14 01/01/19 [Losartan-Hctz 100-25 mg Tab] Methylphenidate HCl 20 mg PO HS 01/01/19 01/01/19 [Methylphenidate HCl ER] Previous Rx's Medication Instructions Recorded Midodrine [ProAmatine] 2.5 mg PO AC-BID #30 tab 01/02/19 Azithromycin [Zithromax Z-pack (6 0 mg PO DIRECTED #6 tab 02/12/19 tabs)] predniSONE [Deltasone] 20 mg PO DAILY 5 Days #5 tab 02/12/19 Allergies Allergy/AdvReac Type Severity Reaction Status Date / Time No Known Allergies Allergy Verified 12/06/19 05:31 Review of Systems ROS Statement: Those systems with pertinent positive or pertinent negative responses have been documented in the HPI. ROS Other: All systems not noted in ROS Statement are negative. Past Medical History Past Medical History: Hypertension Additional Past Medical History / Comment(s): narcolepsy History of Any Multi-Drug Resistant Organisms: None Reported Past Surgical History: Joint Replacement, Orthopedic Surgery Additional Past Surgical History / Comment(s): back sx, left hip replacement, plate in right ankle Past Psychological History: No Psychological Hx Reported Past Alcohol Use History: Rare Past Drug Use History: None Reported - Past Family History Father Additional Family Medical History / Comment(s): Father at age 88 from consultations of coronary artery disease. He had a CABG done at age 59. Mother Additional Family Medical History / Comment(s): Mother at age 77 from liver cancer with history of smoking. Brother(s) Additional Family Medical History / Comment(s): Patient has 1 brother with no murmur no other medical problems. Patient's 1 sister age 73 with history of breast cancer. Patient has 5 children and 3 have a hereditary blood disorder that causes jaundice. General Exam - General Exam Comments Initial Comments: Physical Exam GENERAL: Patient is well-developed and well-nourished. Patient is nontoxic and well- hydrated and is in no distress. HENT: Normocephalic, Atraumatic. EYES: PERRL, EOMI Conjunctival pallor PULMONARY: Unlabored respirations. No audible rales rhonchi or wheezing was noted. CARDIOVASCULAR: There is a regular rate and rhythm without any murmurs gallops or rubs. ABDOMEN: Soft and nontender with normal bowel sounds. SKIN: Skin is pale No lesions or rashes and otherwise unremarkable. : Deferred NEUROLOGIC: Patient is alert and oriented x3. Moving all extremities spontaneously MUSCULOSKELETAL: Normal extremities with adequate strength and full range of motion. No lower extremity swelling or edema. No calf tenderness. PSYCHIATRIC: Normal psychiatric evaluation. Course Vital Signs 12/06/19 12/06/19 12/06/19 05:25 06:00 06:30 Temperature 98.6 F Pulse Rate 95 79 89 Respiratory 22 20 18 Rate Blood Pressure 151/65 105/61 128/58 O2 Sat by Pulse 100 96 99 Oximetry Medical Decision Making - Medical Decision Making The patient was seen and evaluated history is obtained from the patient On physical exam with patient appears quite pale but is hemodynamically stable there is no tachycardia or hypotension noted Labs were ordered Labs resulted with hemoglobin of 9, previous hemoglobin from December 2018 was 13, considering the drop in hemoglobin and patient's symptoms I do feel he needs to be admitted to the hospital for evaluation by GI. This plan was discussed with Dr. Villegas who agrees. Patient was admitted for upper GI bleed, anemia, GI was consulted upon admission. - Lab Data Result diagrams: 12/06/19 05:32 12/06/19 05:32 Lab Results 12/06/19 12/06/19 12/06/19 Range/Units 05:32 05:32 05:32 WBC 10.9 H (3.8-10.6) k/uL RBC 3.23 L (4.30-5.90) m/uL Hgb 9.7 L (13.0-17.5) gm/dL Hct 29.2 L (39.0-53.0) % MCV 90.6 (80.0-100.0) fL MCH 30.2 (25.0-35.0) pg MCHC 33.3 (31.0-37.0) g/dL RDW 14.5 (11.5-15.5) % Plt Count 162 (150-450) k/uL Neutrophils % 70 % Lymphocytes % 21 % Monocytes % 5 % Eosinophils % 2 % Basophils % 1 % Neutrophils # 7.7 (1.3-7.7) k/uL Lymphocytes # 2.3 (1.0-4.8) k/uL Monocytes # 0.6 (0-1.0) k/uL Eosinophils # 0.2 (0-0.7) k/uL Basophils # 0.1 (0-0.2) k/uL PT 10.5 (9.0-12.0) sec INR 1.0 (<1.2) APTT 22.6 (22.0-30.0) sec Sodium 136 L (137-145) mmol/L Potassium 4.0 (3.5-5.1) mmol/L Chloride 107 (98-107) mmol/L Carbon Dioxide 24 (22-30) mmol/L Anion Gap 5 mmol/L BUN 54 H (9-20) mg/dL Creatinine 0.82 (0.66-1.25) mg/dL Est GFR (CKD-EPI)AfAm >90 (>60 ml/min/1.73 sqM) Est GFR (CKD-EPI)NonAf >90 (>60 ml/min/1.73 sqM) Glucose 149 H (74-99) mg/dL Plasma Lactic Acid Ye (0.7-2.0) mmol/L Calcium 8.2 L (8.4-10.2) mg/dL Total Bilirubin 0.4 (0.2-1.3) mg/dL AST 17 (17-59) U/L ALT 13 (4-49) U/L Alkaline Phosphatase 41 (38-126) U/L Troponin I (0.000-0.034) ng/mL Total Protein 5.6 L (6.3-8.2) g/dL Albumin 3.1 L (3.5-5.0) g/dL 12/06/19 12/06/19 Range/Units 05:32 05:32 WBC (3.8-10.6) k/uL RBC (4.30-5.90) m/uL Hgb (13.0-17.5) gm/dL Hct (39.0-53.0) % MCV (80.0-100.0) fL MCH (25.0-35.0) pg MCHC (31.0-37.0) g/dL RDW (11.5-15.5) % Plt Count (150-450) k/uL Neutrophils % % Lymphocytes % % Monocytes % % Eosinophils % % Basophils % % Neutrophils # (1.3-7.7) k/uL Lymphocytes # (1.0-4.8) k/uL Monocytes # (0-1.0) k/uL Eosinophils # (0-0.7) k/uL Basophils # (0-0.2) k/uL PT (9.0-12.0) sec INR (<1.2) APTT (22.0-30.0) sec Sodium (137-145) mmol/L Potassium (3.5-5.1) mmol/L Chloride (98-107) mmol/L Carbon Dioxide (22-30) mmol/L Anion Gap mmol/L BUN (9-20) mg/dL Creatinine (0.66-1.25) mg/dL Est GFR (CKD-EPI)AfAm (>60 ml/min/1.73 sqM) Est GFR (CKD-EPI)NonAf (>60 ml/min/1.73 sqM) Glucose (74-99) mg/dL Plasma Lactic Acid Ye 1.8 (0.7-2.0) mmol/L Calcium (8.4-10.2) mg/dL Total Bilirubin (0.2-1.3) mg/dL AST (17-59) U/L ALT (4-49) U/L Alkaline Phosphatase (38-126) U/L Troponin I <0.012 (0.000-0.034) ng/mL Total Protein (6.3-8.2) g/dL Albumin (3.5-5.0) g/dL Disposition Clinical Impression: Melena, Symptomatic anemia Disposition: ADMITTED IP TO THIS [facility] Condition: Stable Referrals: Rodrigo Singer DO [Primary Care Provider] - 1-2 days
[2019-12-06 05:41] LABS: Basophils # (A) 0.1 k/uL (0-0.2); Basophils % (A) 1 %; Eosinophils # (A) 0.2 k/uL (0-0.7); Eosinophils % (A) 2 %; HCT 29.2 % (39.0-53.0); HGB 9.7 gm/dL (13.0-17.5); Lymphocytes # (A) 2.3 k/uL (1.0-4.8); Lymphocytes % (A) 21 %; MCH 30.2 pg (25.0-35.0); MCHC 33.3 g/dL (31.0-37.0); MCV 90.6 fL (80.0-100.0); Monocytes # (A) 0.6 k/uL (0-1.0); Monocytes % (A) 5 %; Neutrophils # (A) 7.7 k/uL (1.3-7.7); Neutrophils % (A) 70 %; Platelet Count 162 k/uL (150-450); RBC 3.23 m/uL (4.30-5.90); RDW 14.5 % (11.5-15.5); WBC 10.9 k/uL (3.8-10.6)
[2019-12-06 05:50] LABS: ALT 13 U/L (4-49); AST 17 U/L (17-59); African American GFR (CKD) >90 (>60 ml/min/1.73 sqM); Albumin 3.1 g/dL (3.5-5.0); Alkaline Phosphatase 41 U/L (38-126); Anion Gap 5 mmol/L; Blood Urea Nitrogen 54 mg/dL (9-20); Calcium 8.2 mg/dL (8.4-10.2); Carbon Dioxide 24 mmol/L (22-30); Chloride 107 mmol/L (98-107); Glucose 149 mg/dL (74-99); Non-African American GFR(CKD) >90 (>60 ml/min/1.73 sqM); Sodium 136 mmol/L (137-145); Total Bilirubin 0.4 mg/dL (0.2-1.3); Total Protein 5.6 g/dL (6.3-8.2)
[2019-12-06 05:54] LABS: Partial Thromboplastin Time 22.6 sec (22.0-30.0); Prothrombin Time 10.5 sec (9.0-12.0)
[2019-12-06] MEDS ORDERED: NALOXONE 0.4 MG/ML 1 ML VIAL IV PRN (06:51)
[2019-12-06] MEDS ORDERED: ONDANSETRON 4 MG/2 ML VIAL IVP PRN (06:51)
[2019-12-06] MEDS: SODIUM CHLORIDE 0.9% 1,000 ML IV SCH ×2 (07:59→16:18)
[2019-12-06] MEDS ORDERED: PANTOPRAZOLE 40 MG/10 ML VIAL IV SCH (09:00)
--- NOTE | 2019-12-06 11:47 | P.HPIM ---
History of Present Illness H&P Date: 12/06/19 HISTORY OF PRESENT ILLNESS This is a 63-year-old male patient of Sanju GOODRICH with past medical history of hypertension, obstructive sleep apnea on CPAP and narcolepsy, morbid obesity status post gastric bypass done at [facility]. Patient was last hospitalized in 2019 which time he was treated for syncopal episode possible orthostatic changes. He was set up with cardiology for an event monitor. At that time his EF was 60-65% with moderate concentric left ventricular hypertrophy, mild tricuspid regurgitation, no pulmonary hypertension. Patient now presents with history of black stools which he first noticed this morning. Prior to that he had not had a bowel movement for a couple of days. He states he was nauseated this morning without vomiting. He also noted that this morning he had difficulty walking after a few steps he could feel that his heart was racing and had difficulty with breathing. Patient was not feeling well in general yesterday. He denies any nonsteroidal anti- inflammatory use. He has been at [facility] roughly 5 years ago for a GI bleed at which time he underwent endoscopy, colonoscopy and capsule endoscopy without finding source of bleeding. Patient came into [facility] emergency center for evaluation. He was afebrile, heart rate 95, blood pressure 151/65, pulse ox 100% on room air. Blood work revealed a hemoglobin of 9.7 with baseline of 13.8. WBC 10.9, platelet count 162. Sodium 136, potassium 4.0, chloride 107, CO2 24, BUN 54 and creatinine 0.82. Blood sugar 149. Troponin negative. Liver function tests negative. Patient was admitted to the [facility] floor and consult with GI requested. REVIEW OF SYSTEMS Constitutional: No fever, no chills, no night sweats. No weight change. Reports weakness, fatigue or lethargy. Reports daytime sleepiness. EENT: No headache. No blurred vision or double vision, no loss of vision. No loss of Hearing, no ringing in the ears, no dizziness. No nasal drainage or congestion. No epistaxis. No sore throat. Lungs: Reports shortness of breath, cough, no sputum production. No wheezing. Cardiovascular: No chest pain, no lower extremity edema. Reports palpitations. No paroxysmal nocturnal dyspnea. No orthopnea. Reports lightheadedness or dizziness. No syncopal episodes. Abdominal: No abdominal pain. Reports nausea, no vomiting. No diarrhea. No constipation. Reports bloody or tarry stools. Reportso loss of appetite. Genitourinary: No dysuria, increased frequency, urgency. No urinary retention. Musculoskeletal: No myalgias. No muscle weakness, no gait dysfunction, no frequent falls. No back pain. No neck pain. Integumentary: No wounds, no lesions. No rash or pruritus. No unusual bruising. Neurologic: No aphasia. No facial droop. No change in mentation. Psychiatric: No depression. No anxiety. Endocrine: No abnormal blood sugars. No weight change. SOCIAL HISTORY Patient is a lifelong nonsmoker, he drinks alcohol socially-a few times per week. states that he has been drinking every day for the past couple months. He lives at home with his and works at [employer]. FAMILY HISTORY Father at age 88 from complications of coronary artery disease. He had a 3-vessel CABG done at age 58. Mother at age 77 from liver cancer with history of smoking. Patient has 1 brother that he has not seen in 15 years. Patient's 1 sister age 73 with history of breast cancer. Patient has 5 children and 3 have a hereditary blood disorder that causes jaundice. PHYSICAL EXAMINATION Gen: This is a 63-year-old male. He is resting on ER stretcher and appears to be comfortable in no acute distress. Patient's is at bedside. HEENT: Head is atraumatic, normocephalic. Pupils equal, round. Sclerae is anicteric. NECK: Supple. No JVD. No lymphadenopathy. No thyromegaly. LUNGS: Clear to auscultation. No wheezes or rhonchi. No intercostal retractions. HEART: Regular rate and rhythm. No murmur. ABDOMEN: Soft. Bowel sounds are present. No masses. No tenderness. EXTREMITIES: No pedal edema. No calf tenderness. NEUROLOGICAL: Patient is awake, alert and oriented x3. Cranial nerves 2 through 12 are grossly intact. ASSESSMENT AND PLAN 1. Acute GI bleed. Patient admitted to the [facility] floor. Consult with GI. Patient made nothing by mouth until seen by GI. Repeat CBC this afternoon and in the morning. Stool for occult blood to be collected. Continue Protonix 40 mg IV twice daily, IV fluids of normal saline at 125 mL per hour. Hold Aleve. 2. Hypertension. Resume losartan 100 mg daily. Hold hydrochlorothiazide. 3. Obstructive sleep apnea. Continue CPAP. 4. Morbid obesity with BMI of 47, status post bariatric surgery. 5. Narcolepsy. Hold methylphenidate. 6. Recent daily alcohol use. Monitor closely for DTs. 7. DVT prophylaxis. SCDs and CRISTIANE hose. 8. GI prophylaxis Protonix. Patient will be admitted to the hospital for a minimum of 2 night stay. Discharge plan: Return home. Impression and plan of care have been directed as dictated by the signing physician. Janee Mann nurse practitioner acting as scribe for signing physician. Past Medical History Past Medical History: Hypertension Additional Past Medical History / Comment(s): narcolepsy History of Any Multi-Drug Resistant Organisms: None Reported Past Surgical History: Joint Replacement, Orthopedic Surgery Additional Past Surgical History / Comment(s): back sx, left hip replacement, plate in right ankle Past Psychological History: No Psychological Hx Reported Past Alcohol Use History: Rare Past Drug Use History: None Reported - Past Family History Father Additional Family Medical History / Comment(s): Father at age 88 from consultations of coronary artery disease. He had a CABG done at age 59. Mother Additional Family Medical History / Comment(s): Mother at age 77 from liver cancer with history of smoking. Brother(s) Additional Family Medical History / Comment(s): Patient has 1 brother with no murmur no other medical problems. Patient's 1 sister age 73 with history of breast cancer. Patient has 5 children and 3 have a hereditary blood disorder that causes jaundice. Medications and Allergies Home Medications Medication Instructions Recorded Confirmed Type Losartan/Hydrochlorothiazide 1 tab PO DAILY 08/21/14 12/06/19 History [Losartan-Hctz 100-25 mg Tab] Methylphenidate HCl 20 mg PO DAILY 01/01/19 12/06/19 History [Methylphenidate HCl ER] Naproxen Sodium [Aleve] 440 mg PO Q12H PRN 12/06/19 12/06/19 History Allergies Allergy/AdvReac Type Severity Reaction Status Date / Time No Known Allergies Allergy Verified 12/06/19 06:55 Physical Exam Vitals: Vital Signs Temp Pulse Resp BP Pulse Ox 12/06/19 06:30 89 18 128/58 99 12/06/19 06:00 79 20 105/61 96 12/06/19 05:25 98.6 F 95 22 151/65 100 Intake and Output 12/05/19 12/06/19 12/06/19 22:59 06:59 14:59 Other: Weight 136.078 kg Results CBC & Chem 7: 12/06/19 05:32 12/06/19 05:32 Labs: Abnormal Lab Results - Last 24 Hours (Table) 12/06/19 12/06/19 Range/Units 05:32 05:32 WBC 10.9 H (3.8-10.6) k/uL RBC 3.23 L (4.30-5.90) m/uL Hgb 9.7 L (13.0-17.5) gm/dL Hct 29.2 L (39.0-53.0) % Sodium 136 L (137-145) mmol/L BUN 54 H (9-20) mg/dL Glucose 149 H (74-99) mg/dL Calcium 8.2 L (8.4-10.2) mg/dL Total Protein 5.6 L (6.3-8.2) g/dL Albumin 3.1 L (3.5-5.0) g/dL
[2019-12-06] MEDS: LOSARTAN 50 MG TAB PO SCH (13:22)
[2019-12-06 15:41] LABS: MCH 30.5 pg (25.0-35.0); MCHC 33.1 g/dL (31.0-37.0); MCV 92.1 fL (80.0-100.0); Mean Platelet Volume 8.3; Platelet Count 166 k/uL (150-450); RDW 14.7 % (11.5-15.5); WBC 9.6 k/uL (3.8-10.6)
[2019-12-06 15:56] LABS: HGB 7.9 gm/dL (13.0-17.5)
[2019-12-06] MEDS ORDERED: LIDOCAINE 1% (10MG/ML) FOR IV START INTRADERMA PRN (18:11)
[2019-12-06] MEDS: PANTOPRAZOLE 40 MG/10 ML VIAL IV SCH (21:30)
[2019-12-07 04:59] LABS: HGB 8.3 gm/dL (13.0-17.5); MCH 30.9 pg (25.0-35.0); MCHC 33.2 g/dL (31.0-37.0); MCV 93.1 fL (80.0-100.0); Mean Platelet Volume 8.3; Platelet Count 135 k/uL (150-450); RBC 2.69 m/uL (4.30-5.90); RDW 14.7 % (11.5-15.5)
[2019-12-07] MEDS: LACTATED RINGERS 1,000 ML IV SCH ×2 (05:59→17:50)
[2019-12-07] MEDS: SODIUM CHLORIDE 0.9% 1,000 ML IV SCH ×3 (06:00→17:15)
[2019-12-07] MEDS: PANTOPRAZOLE 40 MG/10 ML VIAL IV SCH ×2 (07:53→21:22)
[2019-12-07] MEDS: LOSARTAN 50 MG TAB PO SCH (07:59)
--- NOTE | 2019-12-07 09:25 | P.CONS ---
History of Present Illness - Reason for Consult Consult date: 12/06/19 GI bleed Requesting physician: Zeke Villegas - Chief Complaint Melena - History of Present Illness 63-year-old male with a medical history significant for morbid obesity status post gastric bypass surgery, PEDRO, hypertension and prior GI bleed who presented to the hospital due to dark-colored bowel movements. The patient reports multiple dark-colored bowel movements prior to presentation to the hospital. He reports associated lightheadedness. The patient does state that he has been taking Aleve over the past 2 weeks for back pain. He has a history of chronic constipation treated with fiber in his diet. He denies any history of acid reflux. The patient had a similar episode of GI bleed in the past approximately 5 years ago at [facility] at that time he underwent upper endoscopy, colonoscopy and small bowel capsule endoscopy were negative for any source of bleeding. On presentation the patient was found to have a hemoglobin of 9.7 with elevated BUN of 54 and creatinine 0.82, liver enzymes significant for total bilirubin 0.4, alkaline phosphatase 41, AST 17 and ALT 13. He denies any nausea or vomiting. Review of Systems REVIEW OF SYSTEMS: CONSTITUTIONAL: Denies any fevers, chills, weight change or fatigue. CARDIOVASCULAR: Denies any chest pain, palpitations high or low blood pressures RESPIRATORY: Denies any shortness of breath, hemoptysis or cough. GENITOURINARY: No dysuria or hematuria. MUSCULOSKELETAL: No weakness reported, does report general achiness. SKIN: Denies any new rashes or lesions, jaundice or pallor. PSYCHIATRIC: Denies any depression or anxiety. NEUROLOGY: Denies headache, denies any new focal deficits. EARS/NOSE/THROAT: No recent hearing change, congestion, nasal discharge or sore throat. EYES: No pain in eyes, discharge or change in vision. GASTROINTESTINAL: As per HPI. Past Medical History Past Medical History: Hypertension Additional Past Medical History / Comment(s): narcolepsy History of Any Multi-Drug Resistant Organisms: None Reported Past Surgical History: Joint Replacement, Orthopedic Surgery Additional Past Surgical History / Comment(s): back sx, left hip replacement, plate in right ankle Additional Past Anesthesia/Blood Transfusion Reaction / Comm: Pt received blood transfusions as infant. Past Psychological History: No Psychological Hx Reported Past Alcohol Use History: Rare Past Drug Use History: None Reported - Past Family History Father Additional Family Medical History / Comment(s): Father at age 88 from c onsultations of coronary artery disease. He had a CABG done at age 59. Mother Family Medical History: Cancer Additional Family Medical History / Comment(s): Mother at age 77 from liver cancer with history of smoking. Brother(s) Additional Family Medical History / Comment(s): Patient has 1 brother with no m urmur no other medical problems. Patient's 1 sister age 73 with history of breast cancer. Patient has 5 children and 3 have a hereditary blood disorder that causes jaundice. Medications and Allergies Home Medications Medication Instructions Recorded Confirmed Type Losartan/Hydrochlorothiazide 1 tab PO DAILY 08/21/14 12/06/19 History [Losartan-Hctz 100-25 mg Tab] Methylphenidate HCl 20 mg PO DAILY 01/01/19 12/06/19 History [Methylphenidate HCl ER] Naproxen Sodium [Aleve] 440 mg PO Q12H PRN 12/06/19 12/06/19 History Allergies Allergy/AdvReac Type Severity Reaction Status Date / Time No Known Allergies Allergy Verified 12/06/19 06:55 Physical Exam Vitals: Vital Signs Temp Pulse Pulse Resp BP BP Pulse Ox 12/06/19 12:01 70 18 12/06/19 11:26 98.8 F 85 18 124/63 99 12/06/19 11:02 112/61 12/06/19 10:56 87 18 113/62 99 12/06/19 09:41 98.8 F 90 18 129/59 99 12/06/19 09:00 91 16 116/66 99 12/06/19 08:30 84 16 126/67 99 12/06/19 08:14 98.7 F 90 18 126/67 100 12/06/19 08:04 85 16 126/67 100 12/06/19 06:30 89 18 128/58 99 12/06/19 06:00 79 20 105/61 96 12/06/19 05:25 98.6 F 95 22 151/65 100 Intake and Output 12/06/19 12/06/19 12/06/19 06:59 14:59 22:59 Intake Total 1840 Output Total 1600 Balance 240 Intake: Intake, IV Titration 1000 Amount Sodium Chloride 0.9% 1, 1000 000 ml @ 125 mls/hr IV . Q8H [facility] Rx#:[id number] Oral 840 Output: Urine 1600 Other: Voiding Method Toilet Bedside Commode Urinal Weight 136.078 kg 136.078 kg On physical examination, patient appears comfortable in no apparent distress. HEAD: Normocephalic, atraumatic. EYES: No scleral icterus. No conjunctival injection. MOUTH: No lesions, tongue midline. NECK: Trachea midline, no gross abnormalities. CHEST: Clear to auscultation with no wheezing or rhonchi appreciated. HEART: Regular rate and rhythm. ABDOMEN: Soft, soft and non tender. Bowel sounds are positive. No organomegaly. No guarding or rigidity. EXTREMITIES: No pedal edema. SKIN: No rashes, no jaundice. NEUROLOGIC: Alert and oriented x3. No focal deficits. Results CBC & Chem 7: 12/07/19 04:14 12/06/19 05:32 Labs: Abnormal Lab Results - Last 24 Hours (Table) 12/06/19 12/06/19 Range/Units 05:32 05:32 WBC 10.9 H (3.8-10.6) k/uL RBC 3.23 L (4.30-5.90) m/uL Hgb 9.7 L (13.0-17.5) gm/dL Hct 29.2 L (39.0-53.0) % Sodium 136 L (137-145) mmol/L BUN 54 H (9-20) mg/dL Glucose 149 H (74-99) mg/dL Calcium 8.2 L (8.4-10.2) mg/dL Total Protein 5.6 L (6.3-8.2) g/dL Albumin 3.1 L (3.5-5.0) g/dL Assessment and Plan (1) Anemia associated with acute blood loss Narrative/Plan: 63-year-old male with multiple medical comorbidities presenting with complaints of melena and found to be anemic with a hemoglobin of 9.7 and elevated BUN of 4. Denies any nausea or vomiting. Patient had been seeing dark tarry bowel movements. Previous episode approximately 5 years ago at [facility] at which time he reports upper endoscopy, colonoscopy and video capsule endoscopy which were negative for source of bleeding. He does report taking Aleve over the past few weeks. Unknown etiology, differential includes peptic ulcer disease, AVM, gastritis, esophagitis or other etiology. Current Visit: Yes Status: Acute Code(s): D62 - ACUTE POSTHEMORRHAGIC ANEMIA SNOMED Code(s): 089940563 (2) Melena Current Visit: Yes Status: Acute Code(s): K92.1 - MELENA SNOMED Code(s): 1625407 Plan: Supportive care Clear liquid diet Continue Protonix IV 40 mg twice daily Continue to monitor hemoglobin and hematocrit and transfuse as needed Continue to monitor for signs or symptoms of GI bleeding Avoid NSAID use Hold any anticoagulation therapy at this time N.p.o. after midnight for EGD tomorrow for further evaluation Thank you for allowing us to participate in the care of the patient we will continue to follow
--- NOTE | 2019-12-07 12:26 | P.PN ---
Subjective Progress Note Date: 12/07/19 HISTORY OF PRESENT ILLNESS This is a 63-year-old male patient of Sanju GOODRICH with past medical history of hypertension, obstructive sleep apnea on CPAP and narcolepsy, morbid obesity status post gastric bypass done at [facility]. Patient was last hospitalized in 2019 which time he was treated for syncopal episode possible orthostatic changes. He was set up with cardiology for an event monitor. At that time his EF was 60-65% with moderate concentric left ventricular hypertrophy, mild tricuspid regurgitation, no pulmonary hypertension. Patient now presents with history of black stools which he first noticed this morning. Prior to that he had not had a bowel movement for a couple of days. He states he was nauseated this morning without vomiting. He also noted that this morning he had difficulty walking after a few steps he could feel that his heart was racing and had difficulty with breathing. Patient was not feeling well in general yesterday. He denies any nonsteroidal anti- inflammatory use. He has been at [facility] roughly 5 years ago for a GI bleed at which time he underwent endoscopy, colonoscopy and capsule en doscopy without finding source of bleeding. Patient came into [facility] emergency center for evaluation. He was afebrile, heart rate 95, blood pressure 151/65, pulse ox 100% on room air. Blood work revealed a hemoglobin of 9.7 with baseline of 13.8. WBC 10.9, platelet count 162. Sodium 136, potassium 4.0, chloride 107, CO2 24, BUN 54 and creatinine 0.82. Blood sugar 149. Troponin negative. Liver function tests negative. Patient was admitted to the [facility] floor and consult with GI requested. 12/06: Repeat hemoglobin last evening was 7.9 and patient was transfused 2 units of packed RBCs with repeat hemoglobin this morning of 8.3. He has been seen by GI with plan for EGD today. Patient has been afebrile, heart rate 82, blood pressure 105/71, pulse ox 97% on room air. REVIEW OF SYSTEMS Constitutional: No fever, no chills, no night sweats. No weight change. Reports weakness, fatigue or lethargy. Reports daytime sleepiness. EENT: No headache. No blurred vision or double vision, no loss of vision. No loss of Hearing, no ringing in the ears, no dizziness. No nasal drainage or congestion. No epistaxis. Lungs: Reports shortness of breath, cough, no sputum production. No wheezing. Cardiovascular: No chest pain, no lower extremity edema. Reports palpitations. No paroxysmal nocturnal dyspnea. No orthopnea. Reports lightheadedness or dizziness. No syncopal episodes. Abdominal: No abdominal pain. Reports nausea, no vomiting. No diarrhea. No constipation. Reports bloody or tarry stools. Reportso loss of appetite. Genitourinary: No dysuria, increased frequency, urgency. No urinary retention. Musculoskeletal: No myalgias. No muscle weakness, no gait dysfunction, no frequent falls. No back pain. No neck pain. Integumentary: No wounds, no lesions. No rash or pruritus. No unusual bruising. Neurologic: No aphasia. No facial droop. No change in mentation. Psychiatric: No depression. No anxiety. Endocrine: No abnormal blood sugars. No weight change. PHYSICAL EXAMINATION Gen: This is a 63-year-old male. He is resting in bed and appears to be comfortable in no acute distress. Patient's is at bedside. HEENT: Head is atraumatic, normocephalic. Pupils equal, round. Sclerae is anicteric. NECK: Supple. No JVD. No lymphadenopathy. No thyromegaly. LUNGS: Clear to auscultation. No wheezes or rhonchi. No intercostal retractions. HEART: Regular rate and rhythm. No murmur. ABDOMEN: Soft. Bowel sounds are present. No masses. No tenderness. EXTREMITIES: No pedal edema. No calf tenderness. NEUROLOGICAL: Patient is awake, alert and oriented x3. Cranial nerves 2 through 12 are grossly intact. ASSESSMENT AND PLAN 1. Acute GI bleed. Patient admitted to the [facility] floor. Consult with GI appreciated. Patient is scheduled for EGD today. Repeat CBC this afternoon and in the morning. Continue Protonix 40 mg IV twice daily, IV fluids of normal saline at 125 mL per hour. Hold Aleve. 2. Acute blood loss anemia, POA. Patient is status post 2 units packed RBCs. 3. Hypertension. Resume losartan 100 mg daily. Hold hydrochlorothiazide. 4. Obstructive sleep apnea. Continue CPAP. 5. Morbid obesity with BMI of 47, status post bariatric surgery. 6. Narcolepsy. Hold methylphenidate. 7. Recent daily alcohol use. Monitor closely for DTs. 8. DVT prophylaxis. SCDs and CRISTIANE hose. 9. GI prophylaxis Protonix. Discharge plan: Return home. Impression and plan of care have been directed as dictated by the signing physician. Janee Mann nurse practitioner acting as scribe for signing physician. Objective - Vital Signs Vital signs: Vital Signs Temp 98 F 12/07/19 05:41 Pulse 86 12/07/19 05:41 Resp 16 12/07/19 05:41 BP 104/61 12/07/19 05:41 Pulse Ox 100 12/07/19 05:41 Intake & Output 12/06/19 12/07/19 12/07/19 18:59 06:59 18:59 Intake Total 2200 620 Output Total 1600 Balance 600 620 Weight 136.078 kg Intake: Intake, IV Titration 1000 Amount Sodium Chloride 0.9% 1, 1000 000 ml @ 125 mls/hr IV . Q8H [facility] Rx#:[id number] Oral 1200 Blood Product 620 Rc As-1 Unit 310 [id number] Rc Irr As1 Unit 310 [id number] Output: Urine 1600 Other: Voiding Method Toilet Toilet Bedside Commode Bedside Commode Urinal Urinal # Voids 2 # Bowel Movements 1 - Labs CBC & Chem 7: 12/07/19 04:14 12/06/19 05:32 Labs: Abnormal Lab Results - Last 24 Hours (Table) 12/06/19 12/06/19 12/07/19 Range/Units 05:32 15:12 04:14 RBC 2.60 L 2.69 L (4.30-5.90) m/uL Hgb 7.9 L D 8.3 L (13.0-17.5) gm/dL Hct 24.0 L 25.0 L (39.0-53.0) % Plt Count 135 L (150-450) k/uL Crossmatch See Detail
[2019-12-07] MEDS ORDERED: PROPOFOL 10 MG/ML 20 ML VIAL IV ONE (13:40)
[2019-12-07] MEDS ORDERED: KETAMINE 10 MG/ML 20 ML VIAL ONE (13:40)
[2019-12-07] MEDS ORDERED: LIDOCAINE 1% INJ 10MG/ML (20 ML MDV) ONE (13:40)
[2019-12-07] MEDS ORDERED: IV FLUID CONTINUATION 1,000 ML IV ONE (13:43)
--- NOTE | 2019-12-07 14:07 | P.PCN ---
Date of Procedure: 12/07/19 Description of Procedure: BRIEF HISTORY: 63-year-old male with a medical history significant for morbid obesity status post gastric bypass surgery, PEDRO, hypertension and prior GI bleed who presented to the hospital due to dark-colored bowel movements. The patient reports multiple dark-colored bowel movements prior to presentation to the hospital. He reports associated lightheadedness. The patient does state that he has been taking Aleve over the past 2 weeks for back pain. He has a history of chronic constipation treated with fiber in his diet. He denies any history of acid reflux. The patient had a similar episode of GI bleed in the past approximately 5 years ago at [facility] at that time he underwent upper endoscopy, colonoscopy and small bowel capsule endoscopy were negative for any source of bleeding. On presentation the patient was found to have a hemoglobin of 9.7 with elevated BUN of 54 and creatinine 0.82, liver enzymes significant for total bilirubin 0.4, alkaline phosphatase 41, AST 17 and ALT 13. He denies any nausea or vomiting.. PROCEDURE PERFORMED: Esophagogastroduodenoscopy with biopsy. PREOPERATIVE DIAGNOSIS: Anemia, GI bleed, melena. ESTIMATED BLOOD LOSS: Minimal. IV sedation per anesthesia. PROCEDURE: After informed consent was obtained, the patient was brought into the endoscopy unit. IV sedation was administered by Anesthesia under continuous monitoring. Initially the Olympus GIF-190 video endoscope was inserted into the mouth. Esophagus intubated without any difficulty. It was gradually advanced into the stomach, through the anastomotic site and into the small bowel. There is no evidence of active bleeding or old blood. The small bowel appeared intact . The scope was then withdrawn through the anastomotic site which was carefully examined with findings of a nonbleeding 5 mm anastomotic ulcer without high-risk stigmata for bleeding which was biopsied. The scope was then withdrawn into the gastric remnant which appeared intact. The scope was then withdrawn into the esophagus. The GE junction was located at 39 cm from the incisors. The esophagus appeared normal. There were no erosions or ulcerations seen and the patient tolerated the procedure well. IMPRESSION: 1. Anastomotic site ulcer, biopsied. 2. No active bleeding or old blood noted. 3. Josh-en-Y gastric bypass. RECOMMENDATIONS: The findings of this examination were discussed with the patient. Okay to resume diet. Continue Protonix 40 mg twice daily. Avoid NSAID use. Continue monitor hemoglobin and hematocrit.
[2019-12-07 15:49] LABS: HCT 23.1 % (39.0-53.0); HGB 7.6 gm/dL (13.0-17.5); Hypochromasia Slight; MCH 30.6 pg (25.0-35.0); MCHC 32.8 g/dL (31.0-37.0); MCV 93.4 fL (80.0-100.0); Mean Platelet Volume 8.1; Platelet Count 114 k/uL (150-450); RBC 2.47 m/uL (4.30-5.90); RDW 14.8 % (11.5-15.5); WBC 5.5 k/uL (3.8-10.6)
[2019-12-07] MEDS: ACETAMINOPHEN TAB 325 MG TAB PO PRN (21:22)
[2019-12-08] MEDS: SODIUM CHLORIDE 0.9% 1,000 ML IV SCH ×3 (06:00→16:03)
[2019-12-08 06:41] LABS: HCT 24.8 % (39.0-53.0); HGB 8.3 gm/dL (13.0-17.5); Hypochromasia Slight; MCH 31.6 pg (25.0-35.0); MCHC 33.4 g/dL (31.0-37.0); MCV 94.5 fL (80.0-100.0); Mean Platelet Volume 7.6; Platelet Count 134 k/uL (150-450); RBC 2.62 m/uL (4.30-5.90); WBC 6.6 k/uL (3.8-10.6)
[2019-12-08] MEDS: PANTOPRAZOLE 40 MG/10 ML VIAL IV SCH (07:51)
[2019-12-08] MEDS: LOSARTAN 50 MG TAB PO SCH (07:51)
[2019-12-08 08:17] LABS: African American GFR (CKD) >90 (>60 ml/min/1.73 sqM); Anion Gap 3 mmol/L; Blood Urea Nitrogen 27 mg/dL (9-20); Calcium 7.8 mg/dL (8.4-10.2); Carbon Dioxide 22 mmol/L (22-30); Chloride 112 mmol/L (98-107); Glucose 109 mg/dL (74-99); Non-African American GFR(CKD) >90 (>60 ml/min/1.73 sqM); Potassium 4.2 mmol/L (3.5-5.1); Sodium 137 mmol/L (137-145)
--- NOTE | 2019-12-08 14:14 | P.PN ---
Subjective Progress Note Date: 12/08/19 Principal diagnosis: Melena, GI bleed Since 63-year-old male who has a history of a prior GI bleed who presented to the hospital due to dark-colored bowel movements and feelings of dizziness and lightheaded over the past several days. He has a history of gastric bypass surgery, and has had a prior workup for a GI bleed approximately 5 years ago and [facility] where he underwent an upper endoscopy, colonoscopy and small bowel capsule endoscopy which he states were negative for any source of bleeding. He underwent a upper endoscopy yesterday with Dr. Kebede which revealed an anastomotic site ulcer, that was biopsied there was no active bleeding or old blood noted. In note of a Josh-en-Y gastric bypass. The patient was seen and examined today and states he has no abdominal pain, nausea, or vomiting. He is having loose bowel movements that he reports is brown with no melena or rectal bleeding. He is eating a regular diet and tolerating well. He denies any dizziness, lightheadedness, or shortness of breath. His hemoglobin was stable today at 8.3. Objective - Vital Signs Vital signs: Vital Signs Temp 97.8 F 12/08/19 12:07 Pulse 61 12/08/19 12:07 Resp 17 12/08/19 12:07 BP 129/73 12/08/19 12:07 Pulse Ox 94 L 12/08/19 12:07 Intake & Output 12/07/19 12/08/19 12/08/19 18:59 06:59 18:59 Intake Total 200 310 Output Total 800 Balance -600 310 Intake: IV 200 Blood Product 310 Rc As-1 Unit 310 [id number] Output: Urine 800 Other: Voiding Method Toilet Toilet Bedside Commode Bedside Commode Urinal Urinal # Voids 2 2 # Bowel Movements 1 - Exam General appearance: The patient is alert, oriented, in no acute distress. HET: Head is normocephalic and atraumatic. Conjunctiva pink. Sclera and icteric. Neck: Supple without lymphadenopathy. Abdomen: Soft, nontender, nondistended with bowel sounds. No guarding or rigidity. Extremities: Normal skin color and turgor. No pedal edema Neurological: No focal deficits. Alert and oriented 3. - Labs CBC & Chem 7: 12/08/19 06:01 12/08/19 06:01 Labs: Abnormal Lab Results - Last 24 Hours (Table) 12/06/19 12/07/19 12/08/19 Range/Units 05:32 15:00 06:01 RBC 2.47 L 2.62 L (4.30-5.90) m/uL Hgb 7.6 L 8.3 L (13.0-17.5) gm/dL Hct 23.1 L 24.8 L (39.0-53.0) % Plt Count 114 L 134 L (150-450) k/uL Chloride (98-107) mmol/L BUN (9-20) mg/dL Glucose (74-99) mg/dL Calcium (8.4-10.2) mg/dL Crossmatch See Detail 12/08/19 Range/Units 06:01 RBC (4.30-5.90) m/uL Hgb (13.0-17.5) gm/dL Hct (39.0-53.0) % Plt Count (150-450) k/uL Chloride 112 H (98-107) mmol/L BUN 27 H (9-20) mg/dL Glucose 109 H (74-99) mg/dL Calcium 7.8 L (8.4-10.2) mg/dL Crossmatch Assessment and Plan (1) Anemia associated with acute blood loss Narrative/Plan: 63-year-old male with multiple medical comorbidities presenting with complaint of melena and found to be anemic with a hemoglobin of 9.7 and elevated BUN of 54. Denies any nausea or vomiting. Patient has been seeing dark tarry bowel movements. Previous episode approximately 5 years ago at was seen at [facility] in [place] at which time he reports he had an upper endoscopy, colonoscopy and video capsule endoscopy which were all negative for source of bleeding. He does report taking Aleve over the past few weeks. There is unknown etiology, differential includes peptic ulcer disease, AVM, gastritis, esophagitis, or other etiology. He patient is status post upper endoscopy which revealed an anastomotic site ulcer with no active bleeding or old blood seen. Globin is stable today at 8.3. Current Visit: Yes Status: Acute Code(s): D62 - ACUTE POSTHEMORRHAGIC ANEMIA SNOMED Code(s): 672174250 (2) Melena Current Visit: Yes Status: Acute Code(s): K92.1 - MELENA SNOMED Code(s): 3690346 Plan: 1. Supportive care 2. Regular diet 3. Continue Protonix 40milligrams twice daily 4. Continue to monitor hemoglobin and hematocrit transfuse as needed 5. Continue to monitor for signs and symptoms of GI bleed 6. Avoid NSAID use 7. IV Ferrlecit 1 today, then iron 325 mg twice a day to go home on Patient may be discharged home from a gastroenterology standpoint. Patient to have outpatient follow-up in 3-4 weeks. The impression and plan of care has been dictated as directed. I performed a history and examination of this patient, discussed the same with the dictator. I agree with the dictator's note ,documented as a scribe. Any additional findings or plans will be noted.
[2019-12-08] MEDS: LACTATED RINGERS 1,000 ML IV SCH (16:03)
[2019-12-08] MEDS: ACETAMINOPHEN TAB 325 MG TAB PO PRN (16:04)
--- NOTE | 2019-12-08 16:12 | P.PN ---
Subjective Progress Note Date: 12/08/19 HISTORY OF PRESENT ILLNESS This is a 63-year-old male patient of Sanju GOODRICH with past medical history of hypertension, obstructive sleep apnea on CPAP and narcolepsy, morbid obesity status post gastric bypass done at [facility]. Patient was last hospitalized in 2019 which time he was treated for syncopal episode possible orthostatic changes. He was set up with cardiology for an event monitor. At that time his EF was 60-65% with moderate concentric left ventricular hypertrophy, mild tricuspid regurgitation, no pulmonary hypertension. Patient now presents with history of black stools which he first noticed this morning. Prior to that he had not had a bowel movement for a couple of days. He states he was nauseated this morning without vomiting. He also noted that this morning he had difficulty walking after a few steps he could feel that his heart was racing and had difficulty with breathing. Patient was not feeling well in general yesterday. He denies any nonsteroidal anti- inflammatory use. He has been at [facility] roughly 5 years ago for a GI bleed at which time he underwent endoscopy, colonoscopy and capsule en doscopy without finding source of bleeding. Patient came into [facility] emergency center for evaluation. He was afebrile, heart rate 95, blood pressure 151/65, pulse ox 100% on room air. Blood work revealed a hemoglobin of 9.7 with baseline of 13.8. WBC 10.9, platelet count 162. Sodium 136, potassium 4.0, chloride 107, CO2 24, BUN 54 and creatinine 0.82. Blood sugar 149. Troponin negative. Liver function tests negative. Patient was admitted to the [facility] floor and consult with GI requested. 12/06: Repeat hemoglobin last evening was 7.9 and patient was transfused 2 units of packed RBCs with repeat hemoglobin this morning of 8.3. He has been seen by GI with plan for EGD today. Patient has been afebrile, heart rate 82, blood pressure 105/71, pulse ox 97% on room air. 12/07: Yesterday, patient underwent EGD which revealed an and anastomotic site ulcer which was biopsied. There was no active bleeding or old blood. Recommendations were to resume diet, Protonix 40 mg twice daily, avoid nonsteroidal anti-inflammatory drugs. Repeat hemoglobin today is 8.3. BUN 27 and creatinine 0.77. Patient states he is passing gas today. No bowel movement today. Patient will be monitored overnight and plan for discharge tomorrow. REVIEW OF SYSTEMS Constitutional: No fever, no chills, no night sweats. No weight change. Reports weakness, fatigue or lethargy. Reports daytime sleepiness. EENT: No headache. No blurred vision or double vision, no loss of vision. No loss of Hearing, no ringing in the ears, no dizziness. No nasal drainage or congestion. No epistaxis. Lungs: Reports shortness of breath, cough, no sputum production. No wheezing. Cardiovascular: No chest pain, no lower extremity edema. Reports palpitations. No paroxysmal nocturnal dyspnea. No orthopnea. Reports lightheadedness or dizziness. No syncopal episodes. Abdominal: No abdominal pain. Denies nausea, no vomiting. No diarrhea. No constipation. Reports bloody or tarry stools. Reports loss of appetite. Genitourinary: No dysuria, increased frequency, urgency. No urinary retention. Musculoskeletal: No myalgias. No muscle weakness, no gait dysfunction, no frequent falls. No back pain. No neck pain. Integumentary: No wounds, no lesions. No rash or pruritus. No unusual bruising. Neurologic: No aphasia. No facial droop. No change in mentation. Psychiatric: No depression. No anxiety. Endocrine: No abnormal blood sugars. No weight change. PHYSICAL EXAMINATION Gen: This is a 63-year-old male. He is resting in bed and appears to be comfortable in no acute distress. Patient's is at bedside. HEENT: Head is atraumatic, normocephalic. Pupils equal, round. Sclerae is anicteric. NECK: Supple. No JVD. No lymphadenopathy. No thyromegaly. LUNGS: Clear to auscultation. No wheezes or rhonchi. No intercostal retractions. HEART: Regular rate and rhythm. No murmur. ABDOMEN: Soft. Bowel sounds are present. No masses. No tenderness. EXTREMITIES: No pedal edema. No calf tenderness. NEUROLOGICAL: Patient is awake, alert and oriented x3. Cranial nerves 2 through 12 are grossly intact. ASSESSMENT AND PLAN 1. Acute GI bleed secondary to anastomotic site ulcer. Status post EGD. Repeat CBC in the morning. Continue Protonix 40 mg oral twice daily, discontinue IV fluids. Hold Aleve. 2. Acute blood loss anemia, POA. Patient is status post 2 units packed RBCs. 3. Hypertension. Resume losartan 100 mg daily. Hold hydrochlorothiazide. 4. Obstructive sleep apnea. Continue CPAP. 5. Morbid obesity with BMI of 47, status post bariatric surgery. 6. Narcolepsy. Hold methylphenidate. 7. Recent daily alcohol use. Monitor closely for DTs. 8. DVT prophylaxis. SCDs and CRISTIANE hose. 9. GI prophylaxis Protonix. Discharge plan: Return home on Thursday. Impression and plan of care have been directed as dictated by the signing physician. Janee Mann nurse practitioner acting as scribe for signing physician. Objective - Vital Signs Vital signs: Vital Signs Temp 99.2 F 12/08/19 05:00 Pulse 85 12/08/19 05:00 Resp 16 12/08/19 05:00 BP 94/55 12/08/19 05:00 Pulse Ox 96 12/08/19 05:00 Intake & Output 12/07/19 12/08/19 12/08/19 18:59 06:59 18:59 Intake Total 200 310 Output Total 800 Balance -600 310 Intake: IV 200 Blood Product 310 Rc As-1 Unit 310 [id number] Output: Urine 800 Other: Voiding Method Toilet Toilet Bedside Commode Bedside Commode Urinal Urinal # Voids 2 2 # Bowel Movements 1 - Labs CBC & Chem 7: 12/08/19 06:01 12/08/19 06:01 Labs: Abnormal Lab Results - Last 24 Hours (Table) 12/06/19 12/07/19 12/08/19 Range/Units 05:32 15:00 06:01 RBC 2.47 L 2.62 L (4.30-5.90) m/uL Hgb 7.6 L 8.3 L (13.0-17.5) gm/dL Hct 23.1 L 24.8 L (39.0-53.0) % Plt Count 114 L 134 L (150-450) k/uL Crossmatch See Detail
[2019-12-08] MEDS ORDERED: SODIUM FERRIC GLUCONAT-SUCROSE 125 MG in SODIUM CHLORIDE 0.9% 100 ML IVPB ONE (17:00)
[2019-12-08] MEDS ORDERED: FERROUS SULFATE 325 MG TAB PO SCH (17:30)
[2019-12-08] MEDS: PANTOPRAZOLE 40 MG TABLET PO SCH (17:31)
[2019-12-08 20:18] VITALS: RESP 16
[2019-12-09] MEDS: PANTOPRAZOLE 40 MG TABLET PO SCH (07:55)
[2019-12-09] MEDS: LOSARTAN 50 MG TAB PO SCH (07:55)
[2019-12-09 07:58] VITALS: BP 119/74; PULSE 75; TEMP 98.4
--- NOTE | 2019-12-09 08:03 | P.DS ---
Providers Date of admission: 12/06/19 06:52 Expected date of discharge: 12/09/19 Attending physician: Zeke Villegas Consults: 12/06/19 06:51 Consult Physician Urgent Consulting Provider: Sean Kebede Reason/Comments: upper gi bleed Do you want consulting provider notified?: Yes, Notify in am Primary care physician: [facility] Course: HISTORY OF PRESENT ILLNESS This is a 63-year-old male patient of Sanju GOODRICH with past medical history of hypertension, obstructive sleep apnea on CPAP and narcolepsy, morbid obesity status post gastric bypass done at [facility]. Patient was last hospitalized in 2019 which time he was treated for syncopal episode possible orthostatic changes. He was set up with cardiology for an event monitor. At that time his EF was 60-65% with moderate concentric left ventricular hypertrophy, mild tricuspid regurgitation, no pulmonary hypertension. Patient now presents with history of black stools which he first noticed this morning. Prior to that he had not had a bowel movement for a couple of days. He states he was nauseated this morning without vomiting. He also noted that this morning he had difficulty walking after a few steps he could feel that his heart was racing and had difficulty with breathing. Patient was not feeling well in general yesterday. He denies any nonsteroidal anti- inflammatory use. He has been at [facility] roughly 5 years ago for a GI bleed at which time he underwent endoscopy, colonoscopy and capsule endoscopy without finding source of bleeding. Patient came into [facility] emergency center for evaluation. He was afebrile, heart rate 95, blood pressure 151/65, pulse ox 100% on room air. Blood work revealed a hemoglobin of 9.7 with baseline of 13.8. WBC 10.9, platelet count 162. Sodium 136, potassium 4.0, chloride 107, CO2 24, BUN 54 and creatinine 0.82. Blood sugar 149. Troponin negative. Liver function tests negative. Patient was admitted to the MedSurg floor and consult with GI requested. 12/06: Repeat hemoglobin last evening was 7.9 and patient was transfused 2 units of packed RBCs with repeat hemoglobin this morning of 8.3. He has been seen by GI with plan for EGD today. Patient has been afebrile, heart rate 82, blood pressure 105/71, pulse ox 97% on room air. 12/07: Yesterday, patient underwent EGD which revealed an and anastomotic site ulcer which was biopsied. There was no active bleeding or old blood. Recommendations were to resume diet, Protonix 40 mg twice daily, avoid nonsteroidal anti-inflammatory drugs. Repeat hemoglobin today is 8.3. BUN 27 and creatinine 0.77. Patient states he is passing gas today. No bowel movement today. Patient will be monitored overnight and plan for discharge tomorrow. 12/08: Repeat hemoglobin 8.7, platelet count 138. Electrolytes and renal function normal. Blood sugar 111. Patient has been afebrile, heart rate 75, blood pressure 119/74, pulse ox 90% on room air. Pathology report is pending. Patient will be discharged home today in stable condition. ASSESSMENT AND PLAN 1. Acute GI bleed secondary to anastomotic site ulcer. 2. Acute blood loss anemia, POA. 3. Hypertension. 4. Obstructive sleep apnea. 5. Morbid obesity with BMI of 47, status post bariatric surgery. 6. Narcolepsy. 7. Recent daily alcohol use. Discharge plan: Return home Impression and plan of care have been directed as dictated by the signing physician. Janee Mann nurse practitioner acting as scribe for signing physician. Patient Condition at Discharge: Good Plan - Discharge Summary Discharge Rx Participant: No New Discharge Prescriptions: New Ferrous Sulfate [Iron (65 MG Elemental)] 325 mg PO BID-W/MEALS #0 tab Pantoprazole [Protonix] 40 mg PO AC-BID #60 tablet. Continue Losartan/Hydrochlorothiazide [Losartan-Hctz 100-25 mg Tab] 1 tab PO DAILY Methylphenidate HCl [Methylphenidate HCl ER] 20 mg PO DAILY Discontinued Naproxen Sodium [Aleve] 440 mg PO Q12H PRN PRN Reason: Pain Discharge Medication List Losartan/Hydrochlorothiazide [Losartan-Hctz 100-25 mg Tab] 1 tab PO DAILY 08/21/14 [History] Methylphenidate HCl [Methylphenidate HCl ER] 20 mg PO DAILY 01/01/19 [History] Ferrous Sulfate [Iron (65 MG Elemental)] 325 mg PO BID-W/MEALS #0 tab 12/09/19 [Rx] Pantoprazole [Protonix] 40 mg PO AC-BID #60 tablet. 12/09/19 [Rx] Follow up Appointment(s)/Referral(s): Sanju Valera PAC [REFERRING] - 12/13/19 1:20 pm Sean Kebede MD [STAFF PHYSICIAN] - 01/06/20 3:15 pm Patient Instructions/Handouts: Pantoprazole (By mouth), Anemia (DC), Melena (ED) Discharge Disposition: HOME SELF-CARE
[2019-12-09 08:24] LABS: HCT 25.9 % (39.0-53.0); HGB 8.7 gm/dL (13.0-17.5); MCH 30.9 pg (25.0-35.0); MCHC 33.6 g/dL (31.0-37.0); Mean Platelet Volume 7.9; Platelet Count 138 k/uL (150-450); RBC 2.82 m/uL (4.30-5.90); RDW 15.6 % (11.5-15.5); WBC 6.2 k/uL (3.8-10.6)
[2019-12-09 11:17] LABS: African American GFR (CKD) 108.6 (60.0-200.0); Anion Gap 5.5 mmol/L (4.00-12.00); BUN/Creat Ratio 21.25 Ratio (12.00-20.00); Calcium 8.3 mg/dL (8.7-10.3); Carbon Dioxide 24.5 mmol/L (21.6-31.8); Non-African American GFR(CKD) 93.7 (60.0-200.0); Potassium 3.9 mmol/L (3.5-5.5)
[2019-12-09] MEDS ORDERED: FERROUS SULFATE 325 MG TAB PO SCH (17:30)
== END 2019-12-09 12:36 | disposition home or self-care (01) | DRG 378 ==
LOC: EC 05:23 → 6NMEDSUR 06:52
PROVIDERS: ADMIT Internal Medicine Geriatric Medicine; ATTEND Internal Medicine Geriatric Medicine
PROC: 30233N1 Transfusion of Nonautologous Red Blood Cells into Peripheral Vein, Percutaneous Approach (ICD-10-PCS; 2019-12-06)
PROC: 0DB98ZX Excision of Duodenum, Via Natural or Artificial Opening Endoscopic, Diagnostic (ICD-10-PCS; principal; 2019-12-07 12:20)
DX: K28.0 Acute gastrojejunal ulcer with hemorrhage (principal); D62 Acute posthemorrhagic anemia; Z68.42 Body mass index [BMI] 45.0-49.9, adult; E66.01 Morbid (severe) obesity due to excess calories; I11.9 Hypertensive heart disease without heart failure; I07.1 Rheumatic tricuspid insufficiency; G47.419 Narcolepsy without cataplexy; G47.33 Obstructive sleep apnea (adult) (pediatric); K59.09 Other constipation; M54.9 Dorsalgia, unspecified; R94.4 Abnormal results of kidney function studies; R26.2 Difficulty in walking, not elsewhere classified; Z79.899 Other long term (current) drug therapy; Z96.642 Presence of left artificial hip joint; Z98.84 Bariatric surgery status; Z87.39 Personal history of other diseases of the musculoskeletal system and connective tissue; Z98.890 Other specified postprocedural states; Z72.89 Other problems related to lifestyle; Z82.49 Family history of ischemic heart disease and other diseases of the circulatory system; Z80.0 Family history of malignant neoplasm of digestive organs; Z81.2 Family history of tobacco abuse and dependence; Z80.3 Family history of malignant neoplasm of breast; Z83.2 Family history of diseases of the blood and blood-forming organs and certain disorders involving the immune mechanism
CPT/HCPCS: 36415; 43239; 80048; 80053; 82272; 83605; 84484; 85025; 85027; 85610; 85730; 86850; 86870; 86880; 86900; 86901; 86902; 86920; 88305; 96361; 96374; 96376; 99285

== ENCOUNTER → 2020-04-20 | Outpatient (CLI) | payer BC ==
[2020-04-20 23:18] LABS: Basophils # (A) 0.02 X 10*3/uL (0.00-0.10); Basophils % (A) 0.3 %; Eosinophils # (A) 0.16 X 10*3/uL (0.04-0.35); Eosinophils % (A) 2.6 %; HCT 39.5 % (39.6-50.0); HGB 12.4 g/dL (13.0-17.0); Lymphocytes % (A) 30.6 %; MCH 27.7 pg (27.0-32.0); MCHC 31.4 g/dL (32.0-37.0); MCV 88.4 fL (80.0-97.0); Mean Platelet Volume 11.9 fL (9.5-12.2); Monocytes # (A) 0.48 X 10*3/uL (0.20-1.00); Monocytes % (A) 7.7 %; Neutrophils # (A) 3.63 X 10*3/uL (1.80-7.70); Neutrophils % (A) 58.5 %; Platelet Count 146 X 10*3/uL (140-440); RBC 4.47 X 10*6/uL (4.40-5.60); RDW 14.6 % (11.5-14.5); WBC 6.21 X 10*3/uL (4.50-10.00)
[2020-04-21 06:33] LABS: % Iron Saturation 22.81 (15.00-50.00)
[2020-04-21 06:44] LABS: Ferritin 35.1 ng/mL (22.0-322.0)
== END | disposition home or self-care (01) ==
LOC: LABWHC1 15:22
PROVIDERS: ATTEND Internal Medicine
DX: D50.9 Iron deficiency anemia, unspecified (principal)
CPT/HCPCS: 36415; 82728; 83540; 83550; 85025

== ENCOUNTER 2022-09-06 18:32 | Observation (INO) | payer BC, MEDICARE ==
[2022-09-06] MEDS ORDERED: SODIUM CHLORIDE 0.9% 1,000 ML IV ONE (18:41)
[2022-09-06] MEDS ORDERED: HEPARIN SODIUM 1,000 UN/ML (10ML VL) IV PRN (18:43)
[2022-09-06] MEDS ORDERED: DILTIAZEM 125 MG in SODIUM CHLORIDE 0.9% 100 ML IV SCH (18:45)
[2022-09-06] MEDS ORDERED: HEPARIN SOD,PORK IN 0.45% NACL 25,000 UNIT in 0.45% NACL 1 250ML.BAG IV SCH (18:45)
[2022-09-06 19:31] LABS: Basophils % (A) 0 %; Eosinophils # (A) 0.2 k/uL (0-0.7); Eosinophils % (A) 2 %; HCT 40.3 % (39.0-53.0); HGB 14.3 gm/dL (13.0-17.5); Lymphocytes % (A) 10 %; MCH 32.1 pg (25.0-35.0); MCHC 35.5 g/dL (31.0-37.0); MCV 90.3 fL (80.0-100.0); Mean Platelet Volume 8.6; Monocytes # (A) 0.5 k/uL (0-1.0); Monocytes % (A) 5 %; Neutrophils # (A) 8.6 k/uL (1.3-7.7); Neutrophils % (A) 83 %; Platelet Count 138 k/uL (150-450); RBC 4.46 m/uL (4.30-5.90); RDW 14.4 % (11.5-15.5); WBC 10.4 k/uL (3.8-10.6)
[2022-09-06 19:39] LABS: ALT 29 U/L (4-49); AST 37 U/L (17-59); African American GFR (CKD) >90 (>60 ml/min/1.73 sqM); Albumin 3.7 g/dL (3.5-5.0); Alkaline Phosphatase 56 U/L (38-126); Anion Gap 8 mmol/L; Blood Urea Nitrogen 23 mg/dL (9-20); Calcium 8.1 mg/dL (8.4-10.2); Carbon Dioxide 21 mmol/L (22-30); Chloride 109 mmol/L (98-107); Glucose 152 mg/dL (74-99); Lipase 59 U/L (23-300); Magnesium 1.7 mg/dL (1.6-2.3); Non-African American GFR(CKD) 88 (>60 ml/min/1.73 sqM); Sodium 138 mmol/L (137-145); Total Bilirubin 0.6 mg/dL (0.2-1.3); Total Protein 7.1 g/dL (6.3-8.2)
--- NOTE | 2022-09-06 19:39 | XR ---
EXAMINATION TYPE: XR chest 2V DATE OF EXAM: 09/06/2022 7:33 PM COMPARISON: Chest radiographs from 02/12/2019 TECHNIQUE: XR chest 2V Frontal and lateral views of the chest. CLINICAL INDICATION:Male, 66 years old with history of CP; FINDINGS: Lungs/Pleura: There is no evidence of pleural effusion, focal consolidation, or pneumothorax. Pulmonary vascularity: Unremarkable. Heart/mediastinum: Cardiomediastinal silhouette is enlarged and stable. Musculoskeletal: No acute osseous pathology. Multilevel degenerative disc disease of the thoracic spi ne. IMPRESSION: Cardiomegaly without acute pulmonary process. No significant change from prior examination.
[2022-09-06 19:40] LABS: Partial Thromboplastin Time 24.2 sec (22.0-30.0); Prothrombin Time 10.4 sec (9.0-12.0)
[2022-09-06 19:46] LABS: Potassium 4.1 mmol/L (3.5-5.1)
[2022-09-06 19:48] LABS: NT-Pro-B-Type Natriuretic Pept <20 pg/mL
[2022-09-06] MEDS ORDERED: NALOXONE 0.4 MG/ML 1 ML VIAL IV PRN (20:37)
--- NOTE | 2022-09-06 20:48 | ED ---
General Adult HPI - General Chief complaint: Chest Pain Stated complaint: Syncope Time Seen by Provider: 09/06/22 18:37 Source: EMS Mode of arrival: EMS - History of Present Illness Initial comments: This is a 66-year-old male with a past medical history including GERD and h ypertension presented to the emergency department via EMS for syncope and palpitations. It was reported that the patient had a syncopal episode and EMS was called to further evaluation the patient. When EMS arrived, the patient stated that he no longer wanted to come to the emergency department but was convinced to have his auto signs checked in the interest. It was noted by EMS the patient had an elevated heart rate which they presumed was SVT and did give him a dose of 6 mg and then 12 mg of adenosine without any change. The patient was then brought to the emergency department for evaluation. On arrival, the patient stated that he felt as if his symptoms had improved and he was not li ghtheaded or dizzy. The patient did report palpitations however. The patient denied any history of atrial fibrillation at this time. - Related Data Home Medications Medication Instructions Recorded Confirmed Losartan/Hydrochlorothiazide 1 tab PO DAILY 08/21/14 09/06/22 [Losartan-Hctz 100-25 mg Tab] Methylphenidate HCl 20 mg PO DAILY 01/01/19 09/06/22 [Methylphenidate HCl ER] Allergies Allergy/AdvReac Type Severity Reaction Status Date / Time No Known Allergies Allergy Verified 09/06/22 19:51 Review of Systems ROS Statement: Those systems with pertinent positive or pertinent negative responses have been documented in the HPI. ROS Other: All systems not noted in ROS Statement are negative. Past Medical History Past Medical History: Hypertension Additional Past Medical History / Comment(s): narcolepsy History of Any Multi-Drug Resistant Organisms: None Reported Past Surgical History: Joint Replacement, Orthopedic Surgery Additional Past Surgical History / Comment(s): back sx, left hip replacement, plate in right ankle Additional Past Anesthesia/Blood Transfusion Reaction / Comment(s): Pt received blood transfusions as infant. Past Psychological History: No Psychological Hx Reported Smoking Status: Unknown if ever smoked Past Alcohol Use History: Rare Past Drug Use History: None Reported - Past Family History Father Additional Family Medical History / Comment(s): Father at age 88 from con sultations of coronary artery disease. He had a CABG done at age 59. Mother Family Medical History: Cancer Additional Family Medical History / Comment(s): Mother at age 77 from liver cancer with history of smoking. Brother(s) Additional Family Medical History / Comment(s): Patient has 1 brother with no murmur no other medical problems. Patient's 1 sister age 73 with history of breast cancer. Patient has 5 children and 3 have a hereditary blood disorder that causes jaundice. General Exam Limitations: no limitations General appearance: alert, in no apparent distress, obese Head exam: Present: atraumatic, normocephalic, normal inspection Eye exam: Present: normal appearance, PERRL Pupils: Present: normal accommodation ENT exam: Present: normal exam, normal oropharynx, mucous membranes moist Neck exam: Present: normal inspection, full ROM Respiratory exam: Present: normal lung sounds bilaterally Cardiovascular Exam: Present: tachycardia, irregular rhythm GI/Abdominal exam: Present: soft, normal bowel sounds Extremities exam: Present: normal inspection, full ROM Back exam: Present: normal inspection, full ROM Neurological exam: Present: alert, oriented X3, CN II-XII intact Psychiatric exam: Present: normal affect, normal mood Skin exam: Present: warm, dry Course Vital Signs 09/06/22 18:43 Pulse Rate 140 H Respiratory 18 Rate Blood Pressure 120/81 O2 Sat by Pulse 96 Oximetry EKG Findings - EKG Comments: EKG Findings:: An EKG was obtained and was interpreted by myself showing a rate of 140, QR religious of 105, QTC of 384. This EKG showed an atrial f ibrillation with RVR without any ST segment elevation or depression noted. This was new compared to his previous EKGs. Medical Decision Making - Medical Decision Making Was pt. sent in by a medical professional or institution (, PA, ASSISTANT PRODUCE MANAGER, urgent care, hospital, or custodial...) When possible be specific @ -No Did you speak to anyone other than the patient for history (EMS, parent, family, police, friend...)? What history was obtained from this source @ -Yes, EMS who did state that they give the patient 6 mg and then 12 mg of adenosine without any change. Did you review nursing and triage notes (agree or disagree)? Why? @ -I reviewed and agree with nursing and triage notes Were old charts reviewed (outside hosp., previous admission, EMS record, old EKG, old radiological studies, urgent care reports/EKG's, custodial records)? Report findings @ -No old charts were reviewed Differential Diagnosis (chest pain, altered mental status, abdominal pain women, abdominal pain men, vaginal bleeding, weakness, fever, dyspnea, syncope, headache, dizziness, GI bleed, back pain, seizure, CVA, palpatations, mental health)? @ -New-onset atrial fibrillation with RVR, ACS, pneumothorax, pneumonia EKG interpreted by me (3pts min.). @ -As above X-rays interpreted by me (1pt min.). @ -Chest x-ray was obtained and was interpreted by myself showing cardiomegaly without acute pulmonary process. There is no change from the prior exam. CT interpreted by me (1pt min.). @ -None done U/S interpreted by me (1pt. min.). @ -None done What testing was considered but not performed or refused? (CT, X-rays, U/S, labs)? Why? @ -None What meds were considered but not given or refused? Why? @ -None Did you discuss the management of the patient with other professionals (professionals i.e. , PA, ASSISTANT PRODUCE MANAGER, lab, RT, psych nurse, social professionals, incoming inspector, teacher, youth corrections officer, piano case and bench assembler)? Give summary @ -Yes, the admitting physician was contacted regarding patient's admission. Was smoking cessation discussed for >3mins.? @ -No Was critical care preformed (if so, how long)? @ -Yes, see above Were there social determinants of health that impacted care today? How? (Homelessness, low income, unemployed, alcoholism, drug addiction, transportation, low edu. Level, literacy, decrease access to med. care, shelter, rehab)? @ -No Was there de-escalation of care discussed even if they declined (Discuss DNR or withdrawal of care, Hospice)? DNR status @ -No What co-morbidities impacted this encounter? (DM, HTN, Smoking, COPD, CAD, Cance r, CVA, ARF, Chemo, Hep., AIDS, mental health diagnosis, sleep apnea, morbid obesity)? @ -Hypertension, GERD, obesity Was patient admitted / discharged? Hospital course, mention meds given and route, prescriptions, significant lab abnormalities, going to OR and other pertinent info. @ -The patient was seen and evaluated emergency department. Physical exam, the patient was resting in bed comfortably however vital signs show tachycardia with an irregular rhythm. Laboratory workup was obtained and was largely within normal limits. The patient likely had a new onset atrial fibrillation with RVR. The patient was given a bolus of Cardizem with minimal change and was started on a Cardizem drip in addition to a heparin drip. Due to the patient's new- onset A. fib with RVR, the patient will be admitted for further workup and evaluation. The patient was agreeable to this and was admitted in stable condition. Undiagnosed new problem with uncertain prognosis? @ -No Drug Therapy requiring intensive monitoring for toxicity (Heparin, Nitro, Insulin, Cardizem)? @ -Heparin, Cardizem Were any procedures done? @ -No Diagnosis/symptom? @ -New-onset atrial fibrillation with RVR, syncope Acute, or Chronic, or Acute on Chronic? @ -Acute Uncomplicated (without systemic symptoms) or Complicated (systemic symptoms)? @ -Complicated Side effects of treatment? @ -No Exacerbation, Progression, or Severe Exacerbation? @ -No Poses a threat to life or bodily function? How? (Chest pain, [place], [place], pneumonia, PE, COPD, DKA, ARF, appy, cholecystitis, CVA, Diverticulitis, Homicidal, Suicidal, threat to staff... and all critical care pts) @ -Yes, continued arrhythmia can lead to permanent damage and possible . - Lab Data Result diagrams: 09/06/22 19:19 09/06/22 19:19 Lab Results 09/06/22 09/06/22 09/06/22 Range/Units 19:19 19:19 19:19 WBC 10.4 (3.8-10.6) k/uL RBC 4.46 (4.30-5.90) m/uL Hgb 14.3 (13.0-17.5) gm/dL Hct 40.3 (39.0-53.0) % MCV 90.3 (80.0-100.0) fL MCH 32.1 (25.0-35.0) pg MCHC 35.5 (31.0-37.0) g/dL RDW 14.4 (11.5-15.5) % Plt Count 138 L (150-450) k/uL MPV 8.6 Neutrophils % 83 % Lymphocytes % 10 % Monocytes % 5 % Eosinophils % 2 % Basophils % 0 % Neutrophils # 8.6 H (1.3-7.7) k/uL Lymphocytes # 1.0 (1.0-4.8) k/uL Monocytes # 0.5 (0-1.0) k/uL Eosinophils # 0.2 (0-0.7) k/uL Basophils # 0.0 (0-0.2) k/uL PT 10.4 (9.0-12.0) sec INR 1.0 (<1.2) APTT 24.2 (22.0-30.0) sec Sodium 138 (137-145) mmol/L Potassium 4.1 (3.5-5.1) mmol/L Chloride 109 H (98-107) mmol/L Carbon Dioxide 21 L (22-30) mmol/L Anion Gap 8 mmol/L BUN 23 H (9-20) mg/dL Creatinine 0.90 (0.66-1.25) mg/dL Est GFR (CKD-EPI)AfAm >90 (>60 ml/min/1.73 sqM) Est GFR (CKD-EPI)NonAf 88 (>60 ml/min/1.73 sqM) Glucose 152 H (74-99) mg/dL Calcium 8.1 L (8.4-10.2) mg/dL Magnesium 1.7 (1.6-2.3) mg/dL Total Bilirubin 0.6 (0.2-1.3) mg/dL AST 37 (17-59) U/L ALT 29 (4-49) U/L Alkaline Phosphatase 56 (38-126) U/L Troponin I (0.000-0.034) ng/mL NT-Pro-B Natriuret Pep <20 pg/mL Total Protein 7.1 (6.3-8.2) g/dL Albumin 3.7 (3.5-5.0) g/dL Lipase 59 (23-300) U/L 09/06/22 Range/Units 19:19 WBC (3.8-10.6) k/uL RBC (4.30-5.90) m/uL Hgb (13.0-17.5) gm/dL Hct (39.0-53.0) % MCV (80.0-100.0) fL MCH (25.0-35.0) pg MCHC (31.0-37.0) g/dL RDW (11.5-15.5) % Plt Count (150-450) k/uL MPV Neutrophils % % Lymphocytes % % Monocytes % % Eosinophils % % Basophils % % Neutrophils # (1.3-7.7) k/uL Lymphocytes # (1.0-4.8) k/uL Monocytes # (0-1.0) k/uL Eosinophils # (0-0.7) k/uL Basophils # (0-0.2) k/uL PT (9.0-12.0) sec INR (<1.2) APTT (22.0-30.0) sec Sodium (137-145) mmol/L Potassium (3.5-5.1) mmol/L Chloride (98-107) mmol/L Carbon Dioxide (22-30) mmol/L Anion Gap mmol/L BUN (9-20) mg/dL Creatinine (0.66-1.25) mg/dL Est GFR (CKD-EPI)AfAm (>60 ml/min/1.73 sqM) Est GFR (CKD-EPI)NonAf (>60 ml/min/1.73 sqM) Glucose (74-99) mg/dL Calcium (8.4-10.2) mg/dL Magnesium (1.6-2.3) mg/dL Total Bilirubin (0.2-1.3) mg/dL AST (17-59) U/L ALT (4-49) U/L Alkaline Phosphatase (38-126) U/L Troponin I <0.012 (0.000-0.034) ng/mL NT-Pro-B Natriuret Pep pg/mL Total Protein (6.3-8.2) g/dL Albumin (3.5-5.0) g/dL Lipase (23-300) U/L Critical Care Time Critical Care Time: Yes Total Critical Care Time: 38 Disposition Clinical Impression: Atrial fibrillation with rapid ventricular response, Syncope Disposition: ADMITTED IP TO THIS HOSP Condition: Stable Is patient prescribed a controlled substance at d/c from ED?: No Referrals: Ramon Hagen MD [Primary Care Provider] - 1-2 days Time of Disposition: 19:00 Decision to Admit Reason: Admit from EC Decision Date: 09/06/22 Decision Time: 19:00
[2022-09-07 02:41] LABS: Partial Thromboplastin Time 26.5 sec (22.0-30.0); Prothrombin Time 10.6 sec (9.0-12.0)
--- NOTE | 2022-09-07 07:37 | P.HPIM ---
History of Present Illness This is a pleasant 66 years old male with multiple medical problems as below including hypertension and sleep apnea. Patient presents because he was eating yesterday at restaurant and he felt palpitation in his chest rather than chest pain. Also he was on the bar eating and drinking and when came to the table his started vomiting several times between these times he thinks he passed out for short times as his been told. Patient states that he has been vomiting before and after he passed out. He denies chest pain. No abdominal pain. No diarrhea. He denies urinary complaints. No headache dizziness currently but when he pas sed out he felt lightheadedness or sweating and pale. No weakness or numbness No smoking or illicit drugs, occasional alcohol. on admission he was tachycardic 140, afebrile. Vitals stable He has unremarkable CBC, INR, BMP and liver enzymes. Troponin negative, proBNP less than 20. Lipase normal. Chest x-ray: No acute process. EKG showed atrial fibrillation with heart rate around 140. Patient was started on heparin drip and Cardizem drip with cardiology consult Review of Systems Review of systems CONSTITUTIONAL: No fever, no malaise, no fatigue. HEENT: No recent visual problems or hearing problems. Denied any sore throat. CARDIOVASCULAR: No orthopnea, PND, no palpitations, no syncope. PULMONARY: No shortness of breath, no cough, no hemoptysis. GASTROINTESTINAL: No diarrhea, no nausea, no vomiting, no abdominal pain. Normoactive bowel sounds. NEUROLOGICAL: No headaches, no weakness, no numbness. HEMATOLOGICAL: Denies any bleeding or petechiae. GENITOURINARY: Denies any burning micturition, frequency, or urgency. MUSCULOSKELETAL/RHEUMATOLOGICAL: Denies any joint pain, swelling, or any muscle pain. ENDOCRINE: Denies any polyuria or polydipsia. Past Medical History Past Medical History: Hypertension, Sleep Apnea/CPAP/BIPAP Additional Past Medical History / Comment(s): narcolepsy History of Any Multi-Drug Resistant Organisms: None Reported Past Surgical History: Joint Replacement, Orthopedic Surgery Additional Past Surgical History / Comment(s): back sx, left hip replacement, plate in right ankle Additional Past Anesthesia/Blood Transfusion Reaction / Comment(s): Pt received blood transfusions as infant. Past Psychological History: No Psychological Hx Reported Additional Psychological History / Comment(s): Pt resides with his spouse. He uses a cane prn. He drives some. Smoking Status: Never smoker Past Alcohol Use History: Occasional Additional Past Alcohol Use History / Comment(s): Patient is a lifelong nonsmok er, he drinks alcohol occasionally. Past Drug Use History: None Reported - Past Family History Father Additional Family Medical History / Comment(s): Father at age 88 from consultations of coronary artery disease. He had a CABG done at age 59. Mother Family Medical History: Cancer Additional Family Medical History / Comment(s): Mother at age 77 from liver cancer with history of smoking. Brother(s) Additional Family Medical History / Comment(s): Patient has 1 brother with no murmur no other medical problems. Patient's 1 sister age 73 with history of breast cancer. Patient has 5 children and 3 have a hereditary blood disorder that causes jaundice. Medications and Allergies Home Medications Medication Instructions Recorded Confirmed Type Losartan/Hydrochlorothiazide 1 tab PO DAILY 08/21/14 09/06/22 History [Losartan-Hctz 100-25 mg Tab] Methylphenidate HCl 20 mg PO DAILY 01/01/19 09/06/22 History [Methylphenidate HCl ER] Allergies Allergy/AdvReac Type Severity Reaction Status Date / Time No Known Allergies Allergy Verified 09/06/22 19:51 Physical Exam Vitals: Vital Signs Temp Pulse Pulse Resp BP BP Pulse Ox 09/07/22 04:00 98 F 59 L 14 103/63 97 09/06/22 23:55 09/06/22 23:54 09/06/22 23:29 98.5 F 76 14 99/61 97 09/06/22 21:36 98.6 F 114 H 14 128/61 98 09/06/22 20:50 125 H 20 122/85 94 L 09/06/22 20:40 133 H 22 122/85 97 09/06/22 20:36 133 H 11 L 115/88 96 09/06/22 18:43 140 H 18 120/81 96 FiO2 09/07/22 04:00 09/06/22 23:55 21 09/06/22 23:54 21 09/06/22 23:29 09/06/22 21:36 09/06/22 20:50 09/06/22 20:40 09/06/22 20:36 07/22/23 18:43 Intake and Output 09/06/22 09/07/22 09/07/22 22:59 06:59 14:59 Intake Total 75.78 Balance 75.78 Intake: Intake, IV Titration 75.78 Amount Heparin Sod,Pork in 0.45% 75.78 NaCl 25,000 unit In 0.45 % NaCl 1 250ml.bag @ 6.9 UNITS/KG/HR 10.015 mls/hr IV .Q24H [facility] Rx#: [id number] Other: Voiding Method Toilet Urinal # Voids 2 Weight 145.15 kg GENERAL: The patient is alert and oriented x3, not in any acute distress. Well developed, well nourished. HEENT: Pupils are round and equally reacting to light. EOMI. No scleral icterus. No conjunctival pallor. Normocephalic, atraumatic. No pharyngeal erythema. No thyromegaly. CARDIOVASCULAR: S1 and S2 present. No murmurs, rubs, or gallops. PULMONARY: Chest is clear to auscultation, no wheezing , no crackles. ABDOMEN: Soft, nontender, nondistended, normoactive bowel sounds. No palpable organomegaly. MUSCULOSKELETAL: No joint swelling or deformity. EXTREMITIES: No cyanosis, clubbing, or pedal edema. NEUROLOGICAL: Gross neurological examination did not reveal any focal deficits. SKIN: No rashes. no petechiae. Results CBC & Chem 7: 09/06/22 19:19 09/06/22 19:19 Labs: Abnormal Lab Results - Last 24 Hours (Table) 09/06/22 09/06/22 Range/Units 19:19 19:19 Plt Count 138 L (150-450) k/uL Neutrophils # 8.6 H (1.3-7.7) k/uL Chloride 109 H (98-107) mmol/L Carbon Dioxide 21 L (22-30) mmol/L BUN 23 H (9-20) mg/dL Glucose 152 H (74-99) mg/dL Calcium 8.1 L (8.4-10.2) mg/dL Thrombosis Risk Factor Assmnt - Choose All That Apply Any of the Below Risk Factors Present?: Yes Each Factor Represents 1 point: Obesity (BMI >25) Other Risk Factors: Yes Each Risk Factor Represents 2 Points: Age 61-74 years Other congenital or acquired thrombophilia - If yes, enter type in comment: No Thrombosis Risk Factor Assessment Total Risk Factor Score: 3 Thrombosis Risk Factor Assessment Level: Moderate Risk Assessment and Plan Assessment: A. fib and RVR new-onset Nausea and vomiting, could be gastroenteritis, mild improved Short period of syncope, most likely vasovagal related to repeated vomiting Hypertension History of sleep apnea Morbid obesity with BMI 43 Plan: Continue with Cardizem drip and switched to oral medication per police aide Continue with heparin drip Cartilage consult Check TSH. Labs and medication were reviewed.. Continue same treatment. Continue with symptomatic treatment. Resume home medication. Monitor labs and vitals. DVT and GI prophylaxis. Further recommendations as per clinical course of the patient DVT prophylaxis: heparin GI Prophylaxis: Pepcid Prognosis is guarded
[2022-09-07] MEDS ORDERED: FAMOTIDINE 20 MG/2 ML VIAL IV SCH (09:00)
[2022-09-07 12:15] VITALS: TEMP 97.8
[2022-09-07 12:51] LABS: HCT 39.3 % (39.0-53.0); MCH 30.8 pg (25.0-35.0); MCHC 33.1 g/dL (31.0-37.0); MCV 93.1 fL (80.0-100.0); Platelet Count 137 k/uL (150-450); RBC 4.22 m/uL (4.30-5.90); WBC 6.8 k/uL (3.8-10.6)
[2022-09-07 13:00] LABS: Potassium 4.4 mmol/L (3.5-5.1)
[2022-09-07 13:01] LABS: ALT 28 U/L (4-49); AST 32 U/L (17-59); African American GFR (CKD) 83 (>60 ml/min/1.73 sqM); Albumin 3.8 g/dL (3.5-5.0); Alkaline Phosphatase 66 U/L (38-126); Anion Gap 8 mmol/L; Blood Urea Nitrogen 24 mg/dL (9-20); Calcium 8.8 mg/dL (8.4-10.2); Carbon Dioxide 29 mmol/L (22-30); Chloride 104 mmol/L (98-107); Glucose 84 mg/dL (74-99); Magnesium 2.1 mg/dL (1.6-2.3); Non-African American GFR(CKD) 72 (>60 ml/min/1.73 sqM); Sodium 141 mmol/L (137-145); Total Bilirubin 0.6 mg/dL (0.2-1.3); Total Protein 7.2 g/dL (6.3-8.2)
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
[2022-09-07] MEDS ORDERED: APIXABAN 5 MG TAB PO SCH (13:30)
[2022-09-07] MEDS ORDERED: METOPROLOL SUCCINATE (ER) 25 MG TAB.ER.24H PO SCH (13:30)
[2022-09-07 16:19] VITALS: BP 107/64; PULSE 76; RESP 16
[2022-09-07] MEDS ORDERED: FAMOTIDINE 20 MG TAB PO SCH (21:00)
== END 2022-09-07 17:57 | disposition home or self-care (01) ==
LOC: EC 18:32 → INTOOBSV 20:37 → 3SCARD 20:37 → UNDODISIN 09-07 17:57
PROVIDERS: ADMIT Internal Medicine; ATTEND Internal Medicine
DX: R55 Syncope and collapse (principal); Z68.41 Body mass index [BMI] 40.0-44.9, adult; I48.0 Paroxysmal atrial fibrillation; R11.2 Nausea with vomiting, unspecified; K21.9 Gastro-esophageal reflux disease without esophagitis; I10 Essential (primary) hypertension; G47.33 Obstructive sleep apnea (adult) (pediatric); E66.01 Morbid (severe) obesity due to excess calories; Z98.84 Bariatric surgery status; Z79.899 Other long term (current) drug therapy; Z82.49 Family history of ischemic heart disease and other diseases of the circulatory system
CPT/HCPCS: 96376; 96366 ×3; 96375; 96368; 96365; 99291; 36415; 94660; 93005; 83880; 80053 ×2; 83690; 83735 ×2; 84484; 85025; 85027; 85610 ×2; 85730 ×2; 71046; G0378 ×2; J1644 ×2

== ENCOUNTER → 2023-01-23 | Day surgery (SDC) | payer MEDICARE ==
[2023-01-20 15:50] VITALS: BMI 43.0
[~2023-01-23] MED LIST: ALPRAZolam 0.25 MG TAB PO PRN; ALPRAZolam 0.5 MG TAB PO PRN; ASPIRIN 325 MG TAB PO STA; HEPARIN SODIUM 1,000 UN/ML (10ML VL) IV ONE; IOPAMIDOL-370 100ML BTL INJ ONE; LIDOCAINE 1% INJ 10MG/ML (20 ML MDV) ONE; LIDOCAINE 1% INJ 10MG/ML (5 ML VIAL-PF) SQ ONE; MIDAZOLAM 2 MG/2 ML VIAL IVP ONE; NITROGLYCERIN SL TABS 0.4 MG TAB SUBLINGUAL PRN; SODIUM CHLORIDE 0.9% 1,000 ML IV ONE; SODIUM CHLORIDE 0.9% 1,000 ML in EMPTY BAG 1 BAG IV SCH; VERAPAMIL 2.5 MG/ML 2 ML AMP ONE; fentaNYL (PF) 50 MCG/1 ML VIAL IVP ONE; fentaNYL (PF) 50 MCG/ML 2 ML AMP ONE
[2023-01-23 12:15] VITALS: TEMP 98.3
[2023-01-23 12:17] LABS: Basophils % (A) 1 %; Eosinophils # (A) 0.1 k/uL (0-0.7); Eosinophils % (A) 1 %; Lymphocytes % (A) 29 %; MCH 30.9 pg (25.0-35.0); MCHC 33.3 g/dL (31.0-37.0); MCV 92.8 fL (80.0-100.0); Mean Platelet Volume 8.5; Monocytes # (A) 0.4 k/uL (0-1.0); Monocytes % (A) 6 %; Neutrophils # (A) 4.3 k/uL (1.3-7.7); Neutrophils % (A) 62 %; Platelet Count 136 k/uL (150-450); RBC 4.52 m/uL (4.30-5.90); RDW 14.6 % (11.5-15.5)
[2023-01-23 13:11] LABS: African American GFR (CKD) >90 (>60 ml/min/1.73 sqM); Anion Gap 10 mmol/L; Blood Urea Nitrogen 19 mg/dL (9-20); Carbon Dioxide 27 mmol/L (22-30); Chloride 103 mmol/L (98-107); Glucose 105 mg/dL (74-99); Non-African American GFR(CKD) >90 (>60 ml/min/1.73 sqM); Potassium 4.3 mmol/L (3.5-5.1); Sodium 140 mmol/L (137-145)
[2023-01-23] MEDS: VERAPAMIL SYRINGE (5 MG/10 ML) INTRAARTER ONE ×2 (13:46→13:51)
--- NOTE | 2023-01-23 14:13 | P.CARDCATH ---
Description of Procedure: PROCEDURES PERFORMED: Left heart catheterization, bilateral coronary angiography, ultrasound guided arterial access INDICATION: Abnormal stress test CONSENT:I have discussed the risks, benefits and alternative therapies for the above-mentioned procedure and for both sedation/analgesia as well as necessary blood product administration, if indicated, as they pertain to this patient. The patient has indicated understanding and acceptance of the risks and procedures discussed. PROCEDURE: After the risks, benefits and alternatives of the above mentioned procedure explained in detail with the patient, informed consent was obtained. Patient was taken to the catheterization lab and prepped and draped in usual fashion. Ultrasound guidance was used to assess for arterial access. 1% lidocaine was used to anesthetize the right radial artery. A 6-[place] Lucian sheath was placed in the right radial artery using modified Seldinger technique and ultrasound guidance. Left coronary angiography was performed with a 5-[place] Lucian JL 3.5 catheter and right coronary angiography was performed with a 5-[place] Lucian AR2 catheter in various views. A 5-[place] Lucian AR2 catheter was inserted into the left ventricle and pressure measurements were obtained. The right radial sheath was removed and a TR band was placed with hemostasis achieved. The patient to lerated the procedure well. Patient was transported back to the post catheterization holding area in stable condition. Conscious Sedation: Patient was monitored under the direct supervision of myself for conscious sedation using Versed and fentanyl for a total duration of 14 minutes HEMODYNAMICS: Aorta: 146/72 LV: 141/14, LVEDP 24 SELECTIVE CORONARY ARTERIOGRAPHY: LEFT MAIN: The left main is a large caliber vessel which bifurcates into the LAD and circumflex. There is no significant stenosis. LEFT ANTERIOR DESCENDING CORONARY ARTERY: LAD is a large caliber vessel which wraps around to the apex. There are mild luminal irregularities in the mid LAD 30% and mid to distal LAD 30-40% stenosis. LEFT CIRCUMFLEX CORONARY ARTERY: Left circumflex is a large caliber vessel with a proximal circumflex 30% stenosis and otherwise mild luminal irregularities. RIGHT CORONARY ARTERY: The right coronary artery is a large caliber vessel which gives off a PDA and PLV branch and is the dominant vessel. There are mild proximal and mid RCA 20% stenoses. FINAL IMPRESSION: 1. Mild CAD as described above including LAD 30-40%, circumflex 30% and RCA 20% stenoses. 2. Elevated left sided filling pressures PLAN: 1. Aggressive risk factor modification per most recent ACC/AHA guidelines. 2. Consider diuretics if having any significant dyspnea. Treat remainder of CAD medically.
[2023-01-23 16:35] VITALS: BP 135/66; PULSE 57; RESP 16
== END ==
LOC: CATHCVL 10:06
PROVIDERS: ATTEND Internal Medicine
DX: I25.10 Atherosclerotic heart disease of native coronary artery without angina pectoris (principal); I10 Essential (primary) hypertension; I48.0 Paroxysmal atrial fibrillation; E66.9 Obesity, unspecified; Z82.49 Family history of ischemic heart disease and other diseases of the circulatory system; Z68.41 Body mass index [BMI] 40.0-44.9, adult; Z79.01 Long term (current) use of anticoagulants; Z79.899 Other long term (current) drug therapy
CPT/HCPCS: 93458; 76937; 80048; 85025; C1769; C1894; J2250; J2001; J1644; Q9967; J3010

== ENCOUNTER 2024-02-13 11:04 | Emergency (ER) | payer MEDICARE ==
[2024-02-13 11:39] VITALS: BP 157/79; PULSE 93; RESP 20; TEMP 102.5
--- NOTE | 2024-02-13 12:33 | XR ---
EXAMINATION TYPE: XR chest 1V portable DATE OF EXAM: 02/13/2024 11:51 AM COMPARISON: Chest radiographs from 09/06/2021 CLINICAL INDICATION: Male, 68 years old with history of pain; [facility] TECHNIQUE: XR chest 1V portable Frontal view of the chest. FINDINGS: Lungs/Pleura: There is flattening of the diaphragm with increased lucency of the lungs. No evidence o f pneumothorax, pleural effusion or focal consolidation. Pulmonary vascularity: Unremarkable. Heart/mediastinum: Cardiomediastinal silhouette is unremarkable. Musculoskeletal: No acute osseous pathology. IMPRESSION: 1. No acute cardiopulmonary disease process. 2. COPD changes. [facility], , 02/13/2024 12:31 PM
--- NOTE | 2024-02-13 13:31 | ED ---
URI HPI - General Chief Complaint: Upper Respiratory Infection Stated Complaint: Cough Time Seen by Provider: 02/13/24 11:19 Source: patient, RN notes reviewed Limitations: no limitations - History of Present Illness Initial Comments: This is a 68-year-old male with history of A-fib presenting with fever, dry cough, sinus pain/pressure and bilateral ear pressure x 2 days. Patient endorses use of Coricidin with some relief. Denies chills, fatigue, ear pain, chest pain, dyspnea, abdominal pain, N/V/D. MD Complaint: fever, cough, rhinorrhea, nasal congestion, sinus pain Onset/Timin -: days(s) - Related Data Home Medications Medication Instructions Recorded Confirmed Aspirin 81 mg PO ONCE 01/23/23 01/23/23 Previous Rx's Medication Instructions Recorded Apixaban [Eliquis] 5 mg PO BID #60 tab 09/07/22 Metoprolol Succinate (ER) [Toprol 25 mg PO DAILY #90 tab 09/07/22 Xl] Allergies Allergy/AdvReac Type Severity Reaction Status Date / Time No Known Allergies Allergy Verified 02/13/24 11:39 Review of Systems ROS Statement: Those systems with pertinent positive or pertinent negative responses have been documented in the HPI. ROS Other: All systems not noted in ROS Statement are negative. Past Medical History Past Medical History: Atrial Fibrillation, Hypertension, Sleep Apnea/CPAP/BIPAP Additional Past Medical History / Comment(s): narcolepsy History of Any Multi-Drug Resistant Organisms: None Reported Past Surgical History: Appendectomy, Hernia Repair, Joint Replacement, Orthopedic Surgery Additional Past Surgical History / Comment(s): back sx, left hip replacement, plate in right ankle, COLONOSCOPY, Additional Past Anesthesia/Blood Transfusion Reaction / Comment(s): Pt received blood transfusions as . Past Psychological History: No Psychological Hx Reported Smoking Status: Never smoker Past Alcohol Use History: Occasional - Past Family History Father Additional Family Medical History / Comment(s): Father at age 88 from consultations of coronary artery disease. He had a CABG done at age 59. Mother Family Medical History: Cancer Additional Family Medical History / Comment(s): Mother at age 77 from liver cancer with history of smoking. Brother(s) Additional Family Medical History / Comment(s): Patient has 1 brother with no murmur no other medical problems. Patient's 1 sister age 73 with history of breast cancer. Patient has 5 children and 3 have a hereditary blood disorder that causes jaundice. General Exam Limitations: no limitations General appearance: alert, in no apparent distress Head exam: Present: atraumatic, normocephalic, normal inspection Eye exam: Present: normal appearance, PERRL, EOMI. Absent: scleral icterus, conjunctival injection, periorbital swelling ENT exam: Present: normal exam, mucous membranes moist, other (Negative frontal or maxillary sinus TTP) Neck exam: Present: normal inspection. Absent: tenderness, meningismus, lymphadenopathy Respiratory exam: Present: normal lung sounds bilaterally. Absent: respiratory distress, wheezes, rales, rhonchi, stridor Cardiovascular Exam: Present: regular rate, normal rhythm, normal heart sounds. Absent: systolic murmur, diastolic murmur, rubs, gallop, clicks GI/Abdominal exam: Present: soft, normal bowel sounds. Absent: distended, tenderness, guarding, rebound, rigid Extremities exam: Present: normal inspection, full ROM, normal capillary refill. Absent: tenderness, pedal edema, joint swelling, calf tenderness Back exam: Present: normal inspection Neurological exam: Present: alert, oriented X3, CN II-XII intact Psychiatric exam: Present: normal affect, normal mood Skin exam: Present: warm, dry, intact, normal color. Absent: rash Course Vital Signs 02/13/24 11:35 Temperature 102.5 F H Pulse Rate 93 Respiratory 20 Rate Blood Pressure 157/79 O2 Sat by Pulse 97 Oximetry Medical Decision Making - Medical Decision Making Was pt. sent in by a medical professional or institution (, PA, LUNCHEONETTE OPERATOR, urgent care, hospital, or fdc...) When possible be specific @ -[No] Did you speak to anyone other than the patient for history (EMS, parent, family, police, friend...)? What history was obtained from this source @ -[No] Did you review nursing and triage notes (agree or disagree)? Why? @ -[I reviewed and agree with nursing and triage notes] Were old charts reviewed (outside hosp., previous admission, EMS record, old EKG, old radiological studies, urgent care reports/EKG's, fdc records)? Report findings @ -[No old charts were reviewed] Differential Diagnosis (chest pain, altered mental status, abdominal pain women, abdominal pain men, vaginal bleeding, weakness, fever, dyspnea, syncope, head ache, dizziness, GI bleed, back pain, seizure, CVA, palpatations, mental health, musculoskeletal)? @ -Differential Fever: Pneumonia, viral URI, endocarditis, myocarditis, pericarditis, otitis, sinusi tis, peritonsillar Abscess, retropharyngeal Abscess, epiglottitis, peritonitis, appendicitis, Kayleigh cystitis, diverticulitis, hepatitis, colitis, UTI, PID, TOA, pyelonephritis, prostatitis, epididymitis, meningitis, encephalitis, pulmonary embolism, CVA, thyroid storm, pancreatitis, adrenal crisis, cavernous sinus thrombosis, this is not meant to be an all-inclusive list. EKG interpreted by me (3pts min.). @ -Not done X-rays interpreted by me (1pt min.). @ -[None done] CT interpreted by me (1pt min.). @ -[None done] U/S interpreted by me (1pt. min.). @ -[None done] What testing was considered but not performed or refused? (CT, X-rays, U/S, labs)? Why? @ -[None] What meds were considered but not given or refused? Why? @ -[None] Did you discuss the management of the patient with other professionals (professionals i.e. , PA, LUNCHEONETTE OPERATOR, lab, RT, psych nurse, addiction social worker, senior production manager, teacher, assurance officer, case work aide)? Give summary @ -[No] Was smoking cessation discussed for >3mins.? @ -[No] Was critical care preformed (if so, how long)? @ -[No] Were there social determinants of health that impacted care today? How? (Homelessness, low income, unemployed, alcoholism, drug addiction, james sportation, low edu. Level, literacy, decrease access to med. care, residential, rehab)? @ -[No] Was there de-escalation of care discussed even if they declined (Discuss DNR or withdrawal of care, Hospice)? DNR status @ -[No] What co-morbidities impacted this encounter? (DM, HTN, Smoking, COPD, CAD, Cancer, CVA, ARF, Chemo, Hep., AIDS, mental health diagnosis, sleep apnea, morbid obesity)? @ -[None] Was patient admitted / discharged? Hospital course, mention meds given and route, prescriptions, significant lab abnormalities, going to OR and other pertinent info. @ -[hospital course] Undiagnosed new problem with uncertain prognosis? @ -[No] Drug Therapy requiring intensive monitoring for toxicity (Heparin, Nitro, Insulin, Cardizem)? @ -[No] Were any procedures done? @ -[No] Diagnosis/symptom? @ -[default] Acute, or Chronic, or Acute on Chronic? @ -Acute Uncomplicated (without systemic symptoms) or Complicated (systemic symptoms)? @ -Complicated Side effects of treatment? @ -[No] Exacerbation, Progression, or Severe Exacerbation? @ -[No] Poses a threat to life or bodily function? How? (Chest pain, [place], [place], pneumonia, PE, COPD, DKA, ARF, appy, cholecystitis, CVA, Diverticulitis, Homicidal, Suicidal, threat to staff... and all critical care pts) @ -[No] - Lab Data Result diagrams: 02/13/24 13:51 02/13/24 13:51 Lab Results 02/13/24 02/13/24 02/13/24 Range/Units 11:43 13:51 13:51 WBC 11.3 H (3.8-10.6) k/uL RBC 4.78 (4.30-5.90) m/uL Hgb 14.5 (13.0-17.5) gm/dL Hct 43.9 (39.0-53.0) % MCV 91.9 (80.0-100.0) fL MCH 30.3 (25.0-35.0) pg MCHC 32.9 (31.0-37.0) g/dL RDW 13.4 (11.5-15.5) % Plt Count 120 L (150-450) k/uL MPV 8.0 Neutrophils % 82 % Lymphocytes % 11 % Monocytes % 4 % Eosinophils % 1 % Basophils % 0 % Neutrophils # 9.3 H (1.3-7.7) k/uL Lymphocytes # 1.3 (1.0-4.8) k/uL Monocytes # 0.5 (0-1.0) k/uL Eosinophils # 0.1 (0-0.7) k/uL Basophils # 0.0 (0-0.2) k/uL Sodium 138 (137-145) mmol/L Potassium 4.7 (3.5-5.1) mmol/L Chloride 101 (98-107) mmol/L Carbon Dioxide 31 H (22-30) mmol/L Anion Gap 6 mmol/L BUN 17 (9-20) mg/dL Creatinine 0.87 (0.66-1.25) mg/dL Est GFR (CKD-EPI)AfAm >90 (>60 ml/min/1.73 sqM) Est GFR (CKD-EPI)NonAf 88 (>60 ml/min/1.73 sqM) Glucose 126 H (74-99) mg/dL Plasma Lactic Acid Ye (0.7-2.0) mmol/L Calcium 9.0 (8.4-10.2) mg/dL Magnesium 1.8 (1.6-2.3) mg/dL Total Bilirubin 0.9 (0.2-1.3) mg/dL AST 25 (17-59) U/L ALT 24 (4-49) U/L Alkaline Phosphatase 68 (38-126) U/L Troponin I (0.000-0.034) ng/mL Total Protein 7.2 (6.3-8.2) g/dL Albumin 4.2 (3.5-5.0) g/dL Influenza Type A (PCR) Not Detected (Not Detectd) Influenza Type B (PCR) Not Detected (Not Detectd) RSV (PCR) Not Detected (Not Detectd) SARS-CoV-2 (PCR) Not Detected (Not Detectd) 02/13/24 02/13/24 Range/Units 13:51 13:51 WBC (3.8-10.6) k/uL RBC (4.30-5.90) m/uL Hgb (13.0-17.5) gm/dL Hct (39.0-53.0) % MCV (80.0-100.0) fL MCH (25.0-35.0) pg MCHC (31.0-37.0) g/dL RDW (11.5-15.5) % Plt Count (150-450) k/uL MPV Neutrophils % % Lymphocytes % % Monocytes % % Eosinophils % % Basophils % % Neutrophils # (1.3-7.7) k/uL Lymphocytes # (1.0-4.8) k/uL Monocytes # (0-1.0) k/uL Eosinophils # (0-0.7) k/uL Basophils # (0-0.2) k/uL Sodium (137-145) mmol/L Potassium (3.5-5.1) mmol/L Chloride (98-107) mmol/L Carbon Dioxide (22-30) mmol/L Anion Gap mmol/L BUN (9-20) mg/dL Creatinine (0.66-1.25) mg/dL Est GFR (CKD-EPI)AfAm (>60 ml/min/1.73 sqM) Est GFR (CKD-EPI)NonAf (>60 ml/min/1.73 sqM) Glucose (74-99) mg/dL Plasma Lactic Acid Ye 2.4 H* (0.7-2.0) mmol/L Calcium (8.4-10.2) mg/dL Magnesium (1.6-2.3) mg/dL Total Bilirubin (0.2-1.3) mg/dL AST (17-59) U/L ALT (4-49) U/L Alkaline Phosphatase (38-126) U/L Troponin I <0.012 (0.000-0.034) ng/mL Total Protein (6.3-8.2) g/dL Albumin (3.5-5.0) g/dL Influenza Type A (PCR) (Not Detectd) Influenza Type B (PCR) (Not Detectd) RSV (PCR) (Not Detectd) SARS-CoV-2 (PCR) (Not Detectd) Disposition Clinical Impression: Upper respiratory tract infection Disposition: HOME SELF-CARE Condition: Good Instructions (If sedation given, give patient instructions): Upper Respiratory Infection (ED) Additional Instructions: Tylenol every 4-6 hours as needed for fever/pain. Honey/warm fluids and humidifier for cough. increased rest and oral rehydration. Is patient prescribed a controlled substance at d/c from ED?: No Referrals: Ramon Hagen MD [Primary Care Provider] - 1-2 days Time of Disposition: 15:21
[2024-02-13] MEDS: ACETAMINOPHEN TAB 500 MG TAB PO STA (13:45)
[2024-02-13 14:04] LABS: Basophils % (A) 0 %; Eosinophils # (A) 0.1 k/uL (0-0.7); Eosinophils % (A) 1 %; HCT 43.9 % (39.0-53.0); HGB 14.5 gm/dL (13.0-17.5); Lymphocytes # (A) 1.3 k/uL (1.0-4.8); Lymphocytes % (A) 11 %; MCH 30.3 pg (25.0-35.0); MCHC 32.9 g/dL (31.0-37.0); MCV 91.9 fL (80.0-100.0); Monocytes # (A) 0.5 k/uL (0-1.0); Monocytes % (A) 4 %; Neutrophils # (A) 9.3 k/uL (1.3-7.7); Neutrophils % (A) 82 %; Platelet Count 120 k/uL (150-450); RBC 4.78 m/uL (4.30-5.90); RDW 13.4 % (11.5-15.5); WBC 11.3 k/uL (3.8-10.6)
[2024-02-13 14:17] LABS: ALT 24 U/L (4-49); AST 25 U/L (17-59); African American GFR (CKD) >90 (>60 ml/min/1.73 sqM); Albumin 4.2 g/dL (3.5-5.0); Alkaline Phosphatase 68 U/L (38-126); Anion Gap 6 mmol/L; Blood Urea Nitrogen 17 mg/dL (9-20); Carbon Dioxide 31 mmol/L (22-30); Chloride 101 mmol/L (98-107); Glucose 126 mg/dL (74-99); Magnesium 1.8 mg/dL (1.6-2.3); Non-African American GFR(CKD) 88 (>60 ml/min/1.73 sqM); Potassium 4.7 mmol/L (3.5-5.1); Sodium 138 mmol/L (137-145); Total Bilirubin 0.9 mg/dL (0.2-1.3); Total Protein 7.2 g/dL (6.3-8.2)
[2024-02-13] MEDS ORDERED: SODIUM CHLORIDE 0.9% 1,000 ML IV STA (14:20)
== END 2024-02-13 16:49 | disposition home or self-care (01) ==
LOC: EC 11:04
DX: J06.9 Acute upper respiratory infection, unspecified (principal)
CPT/HCPCS: 36415; 71045; 80053; 83605; 83735; 84484; 85025; 87636; 99283